=== PATIENT | male | born 1955 | race Two or more races ===

== ENCOUNTER 2019-03-24 16:53 | Inpatient (IN) | payer MEDICARE, MEDICAID ==
[~2019-03-24] VITALS: Ht 200.7 cm; Wt 130.6 kg
[2019-03-24] MEDS ORDERED: MIRALAX17 G2 ORAL (16:57)
[2019-03-24] MEDS ORDERED: LEXAPRO20 MG ORAL (16:57)
[2019-03-24] MEDS ORDERED: GABAPENTIN600 MG ORAL (16:57)
[2019-03-24] MEDS ORDERED: LAMICTAL25 M1 PO (16:57)
[2019-03-24] MEDS ORDERED: ASPIRIN81 MG ORAL (16:57)
[2019-03-24] MEDS ORDERED: AMBIEN10 M1 ORAL (16:57)
[2019-03-24] MEDS ORDERED: FUROSEMIDE40 MG ORAL (16:57)
[2019-03-24] MEDS ORDERED: FLOMAX0.4 MG ORAL (16:59)
[2019-03-24] MEDS ORDERED: BENAZEPRIL HCL40 MG ORAL (16:59)
[2019-03-24] MEDS ORDERED: OXYCONTIN40 MG ORAL (16:59)
[2019-03-24] MEDS ORDERED: CARISOPRODOL350 MG ORAL (16:59)
--- NOTE | 2019-03-24 17:10 | NUR ---
ED Nurse Note: Patient was brought in by [facility] complaining of progressive generalized weaknes. Patient stated that hes been experiencing chronic pain on his lower back. He verbalized his left leg does not have sensation at all. Applied pressure on his left leg but patient has no reaction to pain and sensation. He verbalized that on his right leg, he felt the sensation and a little bit of pain when appleying pressure.
--- NOTE | 2019-03-24 17:22 | Emergency Room Report ---
History of Present Illness General Chief Complaint: Generalized Weakness Source: Medical Record, EMS Present Illness HPI Patient is a 63-year-old male brought in by nursing facility after increased generalized weakness. Patient has long-standing history of chronic low back pain. He reports being increasingly weak to his left side. He states he had prior history of degenerative disc disease in his lumbar spine. He reports having a recent hospitalization which she had MRI performed. He does report having some prior history of neuropathy. He states that he smokes 5 cigarettes a day. Patient was sent in from [facility]. Allergies: Coded Allergies: No Known Allergies (Unverified , 03/24/19) Patient History Reviewed Nursing Documentation: PMH: Agreed; PSxH: Agreed Nursing Documentation-PMH Hx Hypertension: Yes History Of Psychiatric Problem: Yes - ANXIETY Physical Exam Vital Signs Date Time Temp Pulse Resp B/P (MAP) Pulse Ox O2 Delivery O2 Flow Rate FiO2 03/24/19 16:48 99.0 81 16 111/72 (85) 93 General Appearance: alert, GCS 15, obese, Chronically Ill Eyes: bilateral eye PERRL ENT: hearing grossly normal Neck: limited range of motion Respiratory: lungs clear, normal breath sounds, no rhonchi Cardiovascular #1: normal peripheral pulses, regular rate, rhythm Gastrointestinal: normal inspection, non tender, soft Musculoskeletal: normal inspection Neurologic: alert, oriented x3, motor weakness - bilateral leg weakness, other - toes downgoing with plantar reflex Psychiatric: normal inspection Medical Decision Making Diagnostic Impression: Primary Impression: Generalized weakness Additional Impressions: Lumbar disc disease Bilateral leg weakness ER Course Patient presented for generalized weakness. Differential diagnosis included was not limited to anemia, urinary tract infection, electrolyte abnormality, hypothyroidism, myocardial infarction, myasthenia gravis, dehydration, among others. Because of complexity of patient's case laboratory tests and imaging studies were ordered. Patient's laboratory study was unremarkable. Patient was noted to have weakness to both lower extremities as well as somewhat to his upper extremities. Appears to be mildly somnolent. Dr. Jorge Benedict was contacted for inpatient management Labs Test 03/24/19 17:55 03/24/19 18:00 03/24/19 19:30 Phosphorus Level 4.3 MG/DL (2.5-4.9) Magnesium Level 1.7 MG/DL (1.8-2.4) Total Bilirubin 0.4 MG/DL (0.2-1.0) Aspartate Amino Transf (AST/SGOT) 22 U/L (15-37) Alanine Aminotransferase (ALT/SGPT) 39 U/L (12-78) Alkaline Phosphatase 133 U/L (46-116) Total Creatine Kinase 28 U/L (26-308) Creatine Kinase MB 1.1 NG/ML (0.0-3.6) Creatine Kinase MB Relative Index 3.9 Troponin I 0.000 ng/mL (0.000-0.056) Total Protein 7.4 G/DL (6.4-8.2) Albumin 3.8 G/DL (3.4-5.0) Globulin 3.6 g/dL Albumin/Globulin Ratio 1.1 (1.0-2.7) Urine Color Pale yellow Urine Appearance Clear Urine pH 8 (4.5-8.0) Urine Specific [place] 1.010 (1.005-1.035) Urine Protein Negative (NEGATIVE) Urine Glucose (UA) Negative (NEGATIVE) Urine Ketones Negative (NEGATIVE) Urine Blood Negative (NEGATIVE) Urine Nitrite Negative (NEGATIVE) Urine Bilirubin Negative (NEGATIVE) Urine Urobilinogen Normal MG/DL (0.0-1.0) Urine Leukocyte Esterase Negative (NEGATIVE) Lactic Acid Level 1.20 mmol/L (0.66-2.22) White Blood Count Red Blood Count Hemoglobin Hematocrit Mean Corpuscular Volume Mean Corpuscular Hemoglobin Mean Corpuscular Hemoglobin Concent Red Cell Distribution Width Platelet Count Mean Platelet Volume Neutrophils (%) (Auto) Lymphocytes (%) (Auto) Monocytes (%) (Auto) Eosinophils (%) (Auto) Basophils (%) (Auto) Sodium Level Potassium Level Chloride Level Carbon Dioxide Level Anion Gap Blood Urea Nitrogen Creatinine Estimat Glomerular Filtration Rate Glucose Level Calcium Level Last Vital Signs Date Time Temp Pulse Resp B/P (MAP) Pulse Ox O2 Delivery O2 Flow Rate FiO2 03/24/19 16:48 99.0 81 16 111/72 (85) 93 Status: improved Disposition: ADMITTED INPATIENT Condition: Stable Quinn Nichols MD Mar 24, 2019 17:22
[2019-03-24 18:27] LABS: BASOPHILS % (AUTO) 1.1 % (0.0-2.0); EOSINOPHILS % (AUTO) 1.6 % (0.0-3.0); HEMATOCRIT 41.8 % (42.0-52.0); HEMOGLOBIN 14.3 G/DL (14.2-18.0); LYMPHOCYTES % (AUTO) 17.5 % (20.0-45.0); MEAN CORPUSCULAR VOLUME 97 FL (80-99); MONOCYTES % (AUTO) 6.2 % (1.0-10.0); NEUTROPHILS % (AUTO) 73.5 % (45.0-75.0); PLATELET COUNT 222 K/UL (150-450); RED BLOOD COUNT 4.33 M/UL (4.70-6.10); RED CELL DISTRIBUTION WIDTH 10.4 % (11.6-14.8); WHITE BLOOD COUNT 11.9 K/UL (4.8-10.8)
[2019-03-24 18:29] VITALS: BP 110/84
[2019-03-24 18:33] LABS: APPEARANCE,URINE CLEAR; BILIRUBIN, URINE NEGATIVE (NEGATIVE); COLOR,URINE PALE YELLOW; GLUCOSE, URINE (UA) NEGATIVE (NEGATIVE); KETONES,URINE NEGATIVE (NEGATIVE); LEUKOCYTE ESTERASE ,URINE NEGATIVE (NEGATIVE); NITRITE,URINE NEGATIVE (NEGATIVE); PH,URINE 8 (4.5-8.0); PROTEIN,URINE NEGATIVE (NEGATIVE); UROBILINOGEN,URINE NORMAL MG/DL (0.0-1.0)
[2019-03-24 18:41] LABS: ANION GAP 3 mmol/L (5-15); BLOOD UREA NITROGEN 12 mg/dL (7-18); CALCIUM 9.5 MG/DL (8.5-10.1); CARBON DIOXIDE 35 MMOL/L (21-32); CHLORIDE 103 MMOL/L (98-107); CREATININE 0.9 MG/DL (0.55-1.30); POTASSIUM 4.4 MMOL/L (3.5-5.1); SODIUM 141 MMOL/L (136-145)
[2019-03-24 19:06] LABS: ALANINE AMINOTRANSFERASE 39 U/L (12-78); ALBUMIN 3.8 G/DL (3.4-5.0); ALBUMIN/GLOBULIN RATIO 1.1 (1.0-2.7); ALKALINE PHOSPHATASE 133 U/L (46-116); ASPARTATE AMINO TRANSFERASE 22 U/L (15-37); BILIRUBIN,TOTAL 0.4 MG/DL (0.2-1.0); CKMB 1.1 NG/ML (0.0-3.6); CREATINE KINASE 28 U/L (26-308); PHOSPHORUS 4.3 MG/DL (2.5-4.9)
[2019-03-24 19:11] VITALS: BP 110/86
--- NOTE | 2019-03-24 19:12 | NUR ---
ED Nurse Note: Report given to Karlene, patient resting in bed with no respiratoy distress noted.
[2019-03-24 21:00] VITALS: BP 110/86
--- NOTE | 2019-03-24 21:00 | NUR ---
ED Nurse Note: Patient was admited to Tele due to generalized weakness, weakness in his lower extremityes. Patient was transfered to the unit via gurmney, by ACLS protocol, with all belongings. AAO x4, VSS at this time, skin is dry warm to touch.
[2019-03-24 21:30] VITALS: BP 116/66
--- NOTE | 2019-03-24 22:00 | NUR ---
NURSE NOTES: Pt brought up via gurney from ER. Got report from Alaina MENDOZA. Pt complaining of weakness in left leg but says he is fine and stable. Denies any pain. Denies n/v or SOB. Pt fully oriented and able to answer all of my questions. No skin issues noted. VSS T:97.9 HR:68 R:18 BP:116/66 O2:97% on room air. Pt on manager cardiac cath running NSR. Pt resting in bed comfortably. Bed in low and locked position, call light within reach, bedside table within reach. Continue to monitor. Called Dr. Benedict for orders. Orders given and placed.
[2019-03-24] MEDS ORDERED: Zolpidem 5mg tab ORAL PRN (23:45)
[2019-03-25] VITALS: BP 139/73
[2019-03-25] MEDS: oxyCONTIN 20mg tab ORAL SCH ×3 (01:33→13:02)
[2019-03-25] MEDS: Heparin 5000 units/ml inj SUBQ SCH ×3 (05:30→21:31)
--- NOTE | 2019-03-25 07:00 | NUR ---
HAND-OFF: Report given to Osiel MENDOZA. endorsed plan of care.
[2019-03-25 08:00] VITALS: BP 102/57
--- NOTE | 2019-03-25 08:17 | NUR ---
NURSE NOTES: Pt in bed in low position, call light at bedside, bed alarm on, pt Ox4 was calm and cooperative this morning but was indorsed that he is agitated and and does not like this hospital, however, he seems compliant this morning, pt denies pain, IV intact and patent, no s/s of distress or sob noted.
[2019-03-25] MEDS ORDERED: Furosemide 40mg tab ORAL SCH (09:00)
[2019-03-25] MEDS ORDERED: oxyCONTIN 20mg tab ORAL SCH ×2 (09:00→18:00)
[2019-03-25] MEDS ORDERED: Miralax 17gm pkt ORAL SCH (09:00)
[2019-03-25] MEDS ORDERED: Aspirin Baby 81mg ORAL SCH (09:00)
[2019-03-25 11:54] VITALS: BP 105/68
--- NOTE | 2019-03-25 12:28 | Consultation ---
History of Present Illness General Chief Complaint: Generalized Weakness Present Illness Allergies: Coded Allergies: No Known Allergies (Unverified , 03/24/19) Medication History Scheduled Aspirin* (Aspirin*), 81 MG ORAL DAILY, (Reported) Benazepril Hcl* (Benazepril Hcl*), 40 MG ORAL DAILY, (Reported) Carisoprodol* (Carisoprodol*), 350 MG ORAL TID, (Reported) Escitalopram Oxalate* (Lexapro*), 20 MG ORAL DAILY, (Reported) Furosemide* (Lasix*), 40 MG ORAL DAILY, (Reported) Gabapentin* (Gabapentin*), 600 MG ORAL THREE TIMES A DAY, (Reported) Oxycodone Hcl Er* (Oxycontin*), 40 MG ORAL TID, (Reported) Polyethylene Glycol 3350* (Miralax*), 17 GM ORAL DAILY, (Reported) Tamsulosin HCl (Flomax), 0.4 MG ORAL DAILY, (Reported) Scheduled PRN Zolpidem Tartrate* (Ambien*), 10 MG ORAL HS PRN for Insomnia, (Reported) Miscellaneous Medications Lamotrigine (Lamictal), 20 MG PO, (Reported) Patient History Healthcare decision maker Resuscitation status Advanced Directive on File Physical Exam Last 24 Hour Vital Signs Date Time Temp Pulse Resp B/P (MAP) Pulse Ox O2 Delivery O2 Flow Rate FiO2 03/25/19 11:54 98.8 66 20 105/68 (80) 95 03/25/19 10:09 93.7 03/25/19 10:09 93.7 03/25/19 09:38 102/57 03/25/19 08:49 Room Air 03/25/19 08:00 93.7 68 20 102/57 (72) 95 03/25/19 07:47 67 03/25/19 04:00 65 03/25/19 00:00 64 03/25/19 00:00 97.5 81 18 139/73 (95) 97 03/24/19 23:50 Room Air 03/24/19 21:42 Room Air 03/24/19 21:30 97.9 68 18 116/66 (83) 97 03/24/19 21:30 75 03/24/19 21:00 97.6 66 18 110/86 96 Room Air 03/24/19 21:00 97.6 66 18 110/86 96 Room Air 03/24/19 19:11 97.6 66 18 110/86 96 Room Air 03/24/19 18:29 97.8 84 18 110/84 96 Room Air 03/24/19 17:15 81 16 Room Air 03/24/19 16:48 99.0 81 16 111/72 (85) 93 Intake and Output 03/24/19 03/25/19 19:00 07:00 Intake Total 700 ml Balance 700 ml Intake Oral 700 ml # Voids 1 2 Laboratory Tests Test 03/24/19 17:55 03/24/19 18:00 03/24/19 19:30 White Blood Count 11.9 K/UL (4.8-10.8) H Red Blood Count 4.33 M/UL (4.70-6.10) L Hemoglobin 14.3 G/DL (14.2-18.0) Hematocrit 41.8 % (42.0-52.0) L Mean Corpuscular Volume 97 FL (80-99) Mean Corpuscular Hemoglobin 33.0 PG (27.0-31.0) H Mean Corpuscular Hemoglobin Concent 34.2 G/DL (32.0-36.0) Red Cell Distribution Width 10.4 % (11.6-14.8) L Platelet Count 222 K/UL (150-450) Mean Platelet Volume 6.7 FL (6.5-10.1) Neutrophils (%) (Auto) 73.5 % (45.0-75.0) Lymphocytes (%) (Auto) 17.5 % (20.0-45.0) L Monocytes (%) (Auto) 6.2 % (1.0-10.0) Eosinophils (%) (Auto) 1.6 % (0.0-3.0) Basophils (%) (Auto) 1.1 % (0.0-2.0) Sodium Level 141 MMOL/L (136-145) Potassium Level 4.4 MMOL/L (3.5-5.1) Chloride Level 103 MMOL/L (98-107) Carbon Dioxide Level 35 MMOL/L (21-32) H Anion Gap 3 mmol/L (5-15) L Blood Urea Nitrogen 12 mg/dL (7-18) Creatinine 0.9 MG/DL (0.55-1.30) Estimat Glomerular Filtration Rate > 60 mL/min (>60) Glucose Level 110 MG/DL (74-106) H Lactic Acid Level 2.90 mmol/L (0.4-2.0) H 1.20 mmol/L (0.66-2.22) Calcium Level 9.5 MG/DL (8.5-10.1) Phosphorus Level 4.3 MG/DL (2.5-4.9) Magnesium Level 1.7 MG/DL (1.8-2.4) L Total Bilirubin 0.4 MG/DL (0.2-1.0) Aspartate Amino Transf (AST/SGOT) 22 U/L (15-37) Alanine Aminotransferase (ALT/SGPT) 39 U/L (12-78) Alkaline Phosphatase 133 U/L (46-116) H Total Creatine Kinase 28 U/L (26-308) Creatine Kinase MB 1.1 NG/ML (0.0-3.6) Creatine Kinase MB Relative Index 3.9 Troponin I 0.000 ng/mL (0.000-0.056) Total Protein 7.4 G/DL (6.4-8.2) Albumin 3.8 G/DL (3.4-5.0) Globulin 3.6 g/dL Albumin/Globulin Ratio 1.1 (1.0-2.7) Urine Color Pale yellow Urine Appearance Clear Urine pH 8 (4.5-8.0) Urine Specific [place] 1.010 (1.005-1.035) Urine Protein Negative (NEGATIVE) Urine Glucose (UA) Negative (NEGATIVE) Urine Ketones Negative (NEGATIVE) Urine Blood Negative (NEGATIVE) Urine Nitrite Negative (NEGATIVE) Urine Bilirubin Negative (NEGATIVE) Urine Urobilinogen Normal MG/DL (0.0-1.0) Urine Leukocyte Esterase Negative (NEGATIVE) Microbiology Date/Time Source Procedure Growth Status 03/24/19 19:30 Rectum Received Height (Feet): 6 Height (Inches): 7.00 Weight (Pounds): 290 Medications Current Medications Medications (Trade) Dose Ordered Sig/Kaela Route PRN Reason Start Time Stop Time Status Last Admin Dose Admin Aspirin (ASA) 81 mg DAILY ORAL 03/25/19 09:00 04/24/19 08:59 03/25/19 09:37 Benazepril HCl (Lotensin) 40 mg DAILY ORAL 10/1/19 09:00 04/24/19 08:59 03/25/19 09:38 Carisoprodol (Soma) 350 mg THREE TIMES A DAY ORAL 03/25/19 02:00 04/24/19 08:59 03/25/19 09:39 Clonazepam (KlonoPIN) 1 mg Q8H ORAL 03/25/19 12:00 03/25/19 20:01 03/25/19 12:02 Clonazepam (KlonoPIN) 1 mg Q8H ORAL 03/26/19 09:00 04/02/19 08:59 Diphenhydramine HCl (Benadryl) 50 mg Q6H PRN ORAL Itching 03/25/19 05:15 04/24/19 05:14 Escitalopram Oxalate (Lexapro) 20 mg DAILY ORAL 03/25/19 09:00 04/24/19 08:59 03/25/19 09:38 Furosemide (Lasix) 40 mg DAILY ORAL 03/25/19 09:00 04/24/19 08:59 03/25/19 09:40 Gabapentin (Neurontin) 600 mg THREE TIMES A DAY ORAL 03/25/19 02:00 04/24/19 08:59 03/25/19 09:39 Heparin Sodium (Porcine) (Heparin 5000 units/ml) 5,000 units EVERY 8 HOURS SUBQ 03/25/19 06:00 04/24/19 05:59 Lamotrigine (LaMICtal) 25 mg DAILY ORAL 03/25/19 09:00 04/24/19 08:59 03/25/19 09:38 Ondansetron HCl (Zofran) 4 mg Q4H PRN IVP Nausea & Vomiting 03/24/19 23:45 04/23/19 23:44 Oxycodone HCl (OxyCONTIN) 40 mg TID ORAL 03/25/19 01:30 04/01/19 08:59 03/25/19 09:39 Polyethylene Glycol (Miralax) 17 gm DAILY ORAL 03/25/19 09:00 04/24/19 08:59 Tamsulosin HCl (Flomax) 0.4 mg BEDTIME ORAL 03/25/19 21:00 04/24/19 00:00 Zolpidem Tartrate (Ambien) 5 mg HSPRN PRN ORAL Insomnia 9/30/19 23:45 03/31/19 23:44 03/25/19 02:04 Assessment/Plan Problem List: (1) Lumbar disc disease ICD Codes: M51.9 - Unspecified thoracic, thoracolumbar and lumbosacral intervertebral disc disorder SNOMED: 572209205 (2) Scoliosis ICD Codes: M41.9 - Scoliosis, unspecified SNOMED: 350168381 Roxana Lay MD Mar 25, 2019 12:28
--- NOTE | 2019-03-25 14:17 | Diagnostic Imaging Report ---
Indication: Shortness of breath Technique: One view of the chest Comparison: none Findings: Lungs and pleural spaces are clear. Heart size is normal. Impression: No acute process
[2019-03-25 16:00] VITALS: BP 110/60
[2019-03-25] MEDS ORDERED: Zolpidem 5mg tab ORAL PRN (17:13)
--- NOTE | 2019-03-25 17:50 | NUR ---
NURSE NOTES: HANDOFF RECEIVED FROM REJI RASMUSSEN. PATIENT STABLE WITH NO APPARENT SIGNS OF DISTRESS. PATIENT ALERT AND ORIENTED AND ABLE TO MAKE NEEDS KNOWN. IV SITE IS CLEAN DRY AND INTACT, SALINE LOCKED. BED IN THE LOW AND LOCKED POSITION AND CALL LIGHT WITHIN REACH, WILL CONTINUE TO MONITOR.
--- NOTE | 2019-03-25 17:52 | NUR ---
HAND-OFF: Report given to Edward in 4E, pt in room 418.1
--- NOTE | 2019-03-25 19:17 | NUR ---
HAND-OFF: Report given to REJI RIGGINS.
--- NOTE | 2019-03-25 19:30 | NUR ---
NURSE NOTES: Patient in bed, alert and oriented x4, talkative, with complaint of 9 out of 10 pain. Per pt, he just got medicated. Waiting for it kick in. Instructed to use of call light for assistance. Call light in reach. Bed in lowest and lock engaged. Will continue to monitor.
[2019-03-25 20:00] VITALS: BP 108/59
[2019-03-25] MEDS ORDERED: Tamsulosin 0.4mg cap ORAL SCH ×2 (21:00)
[2019-03-25] MEDS: Tamsulosin 0.4mg cap ORAL SCH (21:30)
--- NOTE | 2019-03-25 21:45 | History and Physical Report ---
DATE OF ADMISSION: 03/24/2019 CHIEF COMPLAINT: The patient is a 63-year-old male, presents with chief complaint of generalized weakness and back pain. HISTORY OF PRESENT ILLNESS: The patient has a long history of chronic low back pain. The patient has been diagnosed with lumbar stenosis in the past. The patient is a resident of [facility]. The patient was transferred to [facility] emergency room for evaluation for generalized weakness. The patient had been weaker than usual over the last couple of days, worse on the left than the right. The patient presented to [place] emergency room. The patient is admitted with generalized weakness and intractable back pain. PAST MEDICAL HISTORY: Significant for: 1. Hypertension. 2. Lumbar stenosis. 3. Benign prostatic hypertrophy. 4. Anxiety disorder. 5. Obesity. 6. Bipolar disorder. 7. Radiculopathy to the left leg. PAST SURGICAL HISTORY: The patient denies. CURRENT MEDICATIONS: 1. Aspirin 81 mg p.o. daily. 2. Benazepril 40 mg p.o. daily. 3. Soma 350 mg p.o. three times daily. 4. Lexapro 20 mg p.o. daily. 5. Lasix 40 mg p.o. daily. 6. Gabapentin 600 mg p.o. three times daily. 7. Lamictal 20 mg p.o. daily. 8. OxyContin 40 mg p.o. three times daily. 9. MiraLAX 17 g p.o. daily. 10. Flomax 0.4 mg p.o. daily. 11. Ambien 10 mg p.o. nightly. ALLERGIES: No known drug allergies. SOCIAL HISTORY: The patient is and is a resident of [facility]. The patient admits to tobacco use of one-quarter pack per day. The patient denies alcohol use. REVIEW OF SYSTEMS: CONSTITUTIONAL: The patient denies weight loss or weight gain. The patient denies fevers or chills. HEENT: The patient denies ear or throat pain. The patient denies headache. CARDIOVASCULAR: The patient denies palpitations or chest pain. CHEST: The patient denies wheeze or shortness of breath. ABDOMEN: The patient denies nausea, vomiting, diarrhea, or constipation. GENITOURINARY: The patient denies dysuria or increased frequency of urination. NEUROMUSCULAR: The patient complains of generalized weakness as above. The patient complains of chronic low back pain as above. The patient denies seizures. PHYSICAL EXAMINATION: VITAL SIGNS: Temperature 97.5, respirations 18, pulse 81, blood pressure 139/73. GENERAL: The patient is well-developed and well-nourished male, in no apparent distress. HEENT: Eyes, pupils equal and responsive to light and accommodation. Extraocular movements are intact. NECK: Supple without lymphadenopathy. CHEST: Lungs are clear to auscultation bilaterally without wheezes or rales. CARDIOVASCULAR: Regular rate. S1, S2 normal without murmurs, rubs, or gallops. ABDOMEN: Soft, nontender, nondistended. Positive bowel sounds. No evidence of hepatosplenomegaly. Currently, no rebound or guarding noted. EXTREMITIES: Negative for clubbing, cyanosis, or edema. RECTAL/GENITAL: Not performed. NEUROLOGIC: Left leg is 3/5 motor strength compared to 5/5 on the right. Deep tendon reflexes are 2+ plantar. LABORATORY STUDIES: WBC 11.9, hemoglobin 14.3, hematocrit 41.8, platelets 202,000. Sodium 140, potassium 4.4, chloride 103, CO2 35, BUN 12, creatinine 0.9, glucose 110. A chest x-ray was reported as no acute disease. ASSESSMENT: This is a 63-year-old male. 1. Generalized weakness. 2. Chronic low back pain. 3. Left radiculopathy. 4. Lumbar stenosis. 5. Hypertension. 6. Benign prostatic hypertrophy. 7. Anxiety disorder. 8. Obesity. 9. Bipolar depression. TREATMENT: 1. Generalized weakness/low back pain/left radiculopathy/lumbar stenosis. Continue OxyContin as above. A Neurology consultation has been obtained with Dr. Allan Mendes. An MRI of the lumbar spine is pending. 2. Hypertension. Continue benazepril as above. 3. Benign prostatic hypertrophy. Continue tamsulosin as above. 4. Anxiety disorder/bipolar depression. Continue Lamictal and Lexapro as above. 5. Obesity. Jeanmarie Smiley M.D. DR: ELHAM/LIZZIE JOB#: [id number] CC:
--- NOTE | 2019-03-25 22:25 | NUR ---
NURSE NOTES: Per patient, he used to take Neurontin, Oxycontin, Soma, Clonazepam, Ambien and Benadryl at the same time at 12midnight for years. He wanted to take the first 4 at 8am, 4pm and 12midnight. RN was double checking the time of meds he wants to take tonight. Patient got agitated, sarcastic and accusing RN that she messed up the time of his meds. RN explained to the patient that TID has different time of giving meds than every 8hours but pt gives attitude to the nurse. RN called pharmacy for patient's wants. Charge nurse made aware.
[2019-03-26] VITALS: BP 106/61
[2019-03-26] MEDS: oxyCONTIN 20mg tab ORAL SCH ×4 (00:03→23:56)
--- NOTE | 2019-03-26 01:15 | NUR ---
NURSE NOTES: Patient requested not to be disturbed at 4am.
--- NOTE | 2019-03-26 03:57 | NUR ---
NURSE NOTES: Patient wanted his Ambien 10mg but took the 5mg. He said he will wait for the other dose. Dr. Lay made aware. Waiting for call back. Charge nurse made aware.
[2019-03-26] MEDS: Heparin 5000 units/ml inj SUBQ SCH ×3 (06:00→21:03)
[2019-03-26 06:29] LABS: EOSINOPHILS % (AUTO) 3.4 % (0.0-3.0); HEMATOCRIT 35.9 % (42.0-52.0); HEMOGLOBIN 12.4 G/DL (14.2-18.0); MEAN CORPUSCULAR VOLUME 96 FL (80-99); NEUTROPHILS % (AUTO) 52.5 % (45.0-75.0); PLATELET COUNT 191 K/UL (150-450); RED BLOOD COUNT 3.75 M/UL (4.70-6.10); RED CELL DISTRIBUTION WIDTH 11.1 % (11.6-14.8); WHITE BLOOD COUNT 9.1 K/UL (4.8-10.8)
[2019-03-26 06:37] LABS: ANION GAP 5 mmol/L (5-15); BLOOD UREA NITROGEN 16 mg/dL (7-18); CALCIUM 8.8 MG/DL (8.5-10.1); CARBON DIOXIDE 31 MMOL/L (21-32); CHLORIDE 104 MMOL/L (98-107); CREATININE 0.8 MG/DL (0.55-1.30); POTASSIUM 4.1 MMOL/L (3.5-5.1); SODIUM 140 MMOL/L (136-145)
[2019-03-26] MEDS ORDERED: Zolpidem 5mg tab ORAL PRN (06:45)
--- NOTE | 2019-03-26 06:45 | NUR ---
NURSE NOTES: Dr. Lay said ok with Ambien 10mg.
--- NOTE | 2019-03-26 07:17 | NUR ---
HAND-OFF: Report given to REJI Leon.
--- NOTE | 2019-03-26 07:42 | NUR ---
NURSE NOTES: HANDOFF RECEIVED FROM REJI BYRNE. PATIENT ALERT AND ORIENTED AND ABLE TO MAKE NEEDS KNOWN. PATIENT OBSERVED SITTING UP IN BED, NO APPARENT SIGNS OF DISTRESS. IV SITE IS CLEAN, DRY AND INTACT, SALINE LOCKED. PATIENT HAS WALKER AT BEDSIDE, BED IN THE LOW AND LOCKED POSITION, CALL LIGHT WITHIN REACH. WILL CONTINUE TO MONITOR.
[2019-03-26 08:00] VITALS: BP 111/58
[2019-03-26] MEDS: Furosemide 40mg tab ORAL SCH (08:46)
[2019-03-26] MEDS: Aspirin Baby 81mg ORAL SCH (08:47)
--- NOTE | 2019-03-26 08:50 | NUR ---
PT NOTE Received MD order for PT evaluation, medical record reviewed. Attempted to see patient for PT evaluation. Patient declining to participate with PT evaluation, states he wants to sleep. Will re-attempt later as schedule permits, Edward MENDOZA notified.
[2019-03-26] MEDS ORDERED: Miralax 17gm pkt ORAL SCH (09:00)
--- NOTE | 2019-03-26 09:00 | NUR ---
NURSE NOTES: ATTEMPTED TO ASSESS PATIENTS LOWER EXTREMITY MOVEMENT AND FLEXION DUE TO PATIENTS DIAGNOSIS OF LOWER EXTREMITY WEAKNESS. PATIENT STATED " THE DOCTOR DID A THOROUGH EXAMINATION, THIS SHOULD BE IN THE NOTES" EXPLAINED TO PATIENT THAT WE HAVE TO DO A DAILY ASSESSMENT, BUT PATIENT DID NOT COOPERATE, SO WAS THEREFORE UNABLE TO ASSESS LOWER EXTREMITY STRENGTH.
[2019-03-26 12:00] VITALS: BP 115/71
--- NOTE | 2019-03-26 13:28 | Pulmonology Progress Note ---
Assessment/Plan Problems: (1) Lumbar disc disease (2) Scoliosis (3) Malingering Assessment/Plan symptomatic treatment Neuro evaluation dvt prophylaxis Subjective ROS Limited/Unobtainable: No Constitutional: Reports: no symptoms HEENT: Repors: no symptoms Allergies: Coded Allergies: No Known Allergies (Unverified , 03/24/19) Objective Last 24 Hour Vital Signs Date Time Temp Pulse Resp B/P (MAP) Pulse Ox O2 Delivery O2 Flow Rate FiO2 03/26/19 09:00 Room Air 03/26/19 08:49 111/58 03/26/19 08:00 97.9 77 16 111/58 (75) 97 03/26/19 00:00 98.0 76 18 106/61 (76) 95 03/25/19 21:00 Room Air 03/25/19 20:00 98.2 70 20 108/59 (75) 95 03/25/19 16:00 98.6 62 18 110/60 (77) 97 03/25/19 15:32 69 03/25/19 13:31 98.8 03/25/19 13:31 98.8 Intake and Output 03/25/19 03/26/19 19:00 07:00 Intake Total 490 ml Output Total 600 ml Balance 490 ml -600 ml Intake Oral 490 ml Output Urine Total 600 ml # Voids 1 General Appearance: WD/WN HEENT: atraumatic, anicteric Respiratory/Chest: lungs clear Cardiovascular: normal peripheral pulses, regular rhythm, no JVD Abdomen: no organomegaly, no scars Microbiology Date/Time Source Procedure Growth Status 03/24/19 18:15 Blood Blood Culture - Preliminary NO GROWTH AFTER 24 HOURS Resulted 03/24/19 17:55 Blood Blood Culture - Preliminary NO GROWTH AFTER 24 HOURS Resulted 03/24/19 19:30 Rectum Received Laboratory Tests 03/26/19 05:15: White Blood Count 9.1, Red Blood Count 3.75L, Hemoglobin 12.4L, Hematocrit 35.9L , Mean Corpuscular Volume 96, Mean Corpuscular Hemoglobin 32.9H, Mean Corpuscular Hemoglobin Concent 34.4, Red Cell Distribution Width 11.1L, Platelet Count 191, Mean Platelet Volume 6.1L, Neutrophils (%) (Auto) 52.5, Lymphocytes (%) (Auto) 35.0, Monocytes (%) (Auto) 8.0, Eosinophils (%) (Auto) 3.4H, Basophils (%) (Auto) 1.0, Sodium Level 140, Potassium Level 4.1, Chloride Level 104, Carbon Dioxide Level 31, Anion Gap 5, Blood Urea Nitrogen 16, Creatinine 0.8, Estimat Glomerular Filtration Rate > 60, Glucose Level 104, Calcium Level 8.8 Current Medications Medications (Trade) Dose Ordered Sig/Kaela Route PRN Reason Start Time Stop Time Status Last Admin Dose Admin Aspirin (ASA) 81 mg DAILY ORAL 03/26/19 09:00 04/24/19 08:59 03/26/19 08:47 Benazepril HCl (Lotensin) 40 mg DAILY ORAL 03/26/19 09:00 04/24/19 08:59 Carisoprodol (Soma) 350 mg TID@0000,0800,1600 ORAL 03/26/19 00:00 04/25/19 00:00 03/26/19 08:41 Clonazepam (KlonoPIN) 1 mg TID@0000,0800,1600 ORAL 03/26/19 08:00 04/02/19 07:59 03/26/19 08:41 Diphenhydramine HCl (Benadryl) 50 mg Q6H PRN ORAL Itching 03/25/19 17:12 04/24/19 17:11 03/26/19 02:55 Escitalopram Oxalate (Lexapro) 20 mg DAILY ORAL 03/26/19 09:00 04/24/19 08:59 03/26/19 08:43 Furosemide (Lasix) 40 mg DAILY ORAL 03/26/19 09:00 04/24/19 08:59 03/26/19 08:46 Gabapentin (Neurontin) 600 mg TID@0000,0800,1600 ORAL 03/26/19 00:00 04/25/19 00:00 03/26/19 08:45 Heparin Sodium (Porcine) (Heparin 5000 units/ml) 5,000 units EVERY 8 HOURS SUBQ 03/25/19 22:00 04/24/19 05:59 Lamotrigine (LaMICtal) 25 mg DAILY ORAL 03/26/19 09:00 04/24/19 08:59 Ondansetron HCl (Zofran) 4 mg Q4H PRN IVP Nausea & Vomiting 03/25/19 19:45 04/23/19 23:44 Oxycodone HCl (OxyCONTIN) 40 mg TID@0000,0800,1600 ORAL 03/26/19 00:00 04/02/19 00:00 03/26/19 08:42 Polyethylene Glycol (Miralax) 17 gm DAILY ORAL 03/26/19 09:00 04/24/19 08:59 Tamsulosin HCl (Flomax) 0.4 mg BEDTIME ORAL 03/25/19 21:00 04/24/19 00:00 03/25/19 21:30 Zolpidem Tartrate (Ambien) 5 mg HSPRN PRN ORAL Insomnia 03/26/19 11:45 04/02/19 06:44 Roxana Lay MD Mar 26, 2019 13:28
[2019-03-26 16:00] VITALS: BP 114/56
--- NOTE | 2019-03-26 19:08 | Internal Med Progress Note ---
Subjective Date of Service: Mar 26, 2019 Physician Name Jeanmarie Smiley Attending Physician Jorge Benedict MD Current Medications Medications (Trade) Dose Ordered Sig/Kaela Route PRN Reason Start Time Stop Time Status Last Admin Dose Admin Aspirin (ASA) 81 mg DAILY ORAL 03/26/19 09:00 04/24/19 08:59 03/26/19 08:47 Benazepril HCl (Lotensin) 40 mg DAILY ORAL 03/26/19 09:00 04/24/19 08:59 Carisoprodol (Soma) 350 mg TID@0000,0800,1600 ORAL 03/26/19 00:00 04/25/19 00:00 03/26/19 16:58 Clonazepam (KlonoPIN) 1 mg TID@0000,0800,1600 ORAL 03/26/19 08:00 04/02/19 07:59 03/26/19 16:58 Diphenhydramine HCl (Benadryl) 50 mg Q6H PRN ORAL Itching 03/25/19 17:12 04/24/19 17:11 03/26/19 02:55 Escitalopram Oxalate (Lexapro) 20 mg DAILY ORAL 03/26/19 09:00 04/24/19 08:59 03/26/19 08:43 Furosemide (Lasix) 40 mg DAILY ORAL 03/26/19 09:00 04/24/19 08:59 03/26/19 08:46 Gabapentin (Neurontin) 600 mg TID@0000,0800,1600 ORAL 03/26/19 00:00 04/25/19 00:00 03/26/19 16:58 Heparin Sodium (Porcine) (Heparin 5000 units/ml) 5,000 units EVERY 8 HOURS SUBQ 03/25/19 22:00 04/24/19 05:59 03/26/19 14:25 Lamotrigine (LaMICtal) 25 mg DAILY ORAL 03/26/19 09:00 04/24/19 08:59 Ondansetron HCl (Zofran) 4 mg Q4H PRN IVP Nausea & Vomiting 03/25/19 19:45 04/23/19 23:44 Oxycodone HCl (OxyCONTIN) 40 mg TID@0000,0800,1600 ORAL 03/26/19 00:00 04/02/19 00:00 03/26/19 16:57 Polyethylene Glycol (Miralax) 17 gm DAILY ORAL 03/26/19 09:00 04/24/19 08:59 Tamsulosin HCl (Flomax) 0.4 mg BEDTIME ORAL 03/25/19 21:00 04/24/19 00:00 03/25/19 21:30 Zolpidem Tartrate (Ambien) 5 mg HSPRN PRN ORAL Insomnia 03/26/19 11:45 04/02/19 06:44 Allergies: Coded Allergies: No Known Allergies (Unverified , 03/24/19) ROS Limited/Unobtainable: No Constitutional: Reports: no symptoms HEENT: Reports: no symptoms Cardiovascular: Reports: no symptoms Respiratory: Reports: no symptoms Gastrointestinal/Abdominal: Reports: no symptoms Genitourinary: Reports: no symptoms Neurologic/Psychiatric: Reports: no symptoms Subjective 63 YO M admitted with generalized weakness and lumbar radiculopathy. Cover for Int [facility]-DR Benedict Objective Last Vital Signs Date Time Temp Pulse Resp B/P (MAP) Pulse Ox O2 Delivery O2 Flow Rate FiO2 03/26/19 16:00 98.3 60 18 114/56 (75) 95 03/26/19 09:00 Room Air Laboratory Tests Test 03/26/19 05:15 White Blood Count 9.1 K/UL (4.8-10.8) Red Blood Count 3.75 M/UL (4.70-6.10) L Hemoglobin 12.4 G/DL (14.2-18.0) L Hematocrit 35.9 % (42.0-52.0) L Mean Corpuscular Volume 96 FL (80-99) Mean Corpuscular Hemoglobin 32.9 PG (27.0-31.0) H Mean Corpuscular Hemoglobin Concent 34.4 G/DL (32.0-36.0) Red Cell Distribution Width 11.1 % (11.6-14.8) L Platelet Count 191 K/UL (150-450) Mean Platelet Volume 6.1 FL (6.5-10.1) L Neutrophils (%) (Auto) 52.5 % (45.0-75.0) Lymphocytes (%) (Auto) 35.0 % (20.0-45.0) Monocytes (%) (Auto) 8.0 % (1.0-10.0) Eosinophils (%) (Auto) 3.4 % (0.0-3.0) H Basophils (%) (Auto) 1.0 % (0.0-2.0) Sodium Level 140 MMOL/L (136-145) Potassium Level 4.1 MMOL/L (3.5-5.1) Chloride Level 104 MMOL/L (98-107) Carbon Dioxide Level 31 MMOL/L (21-32) Anion Gap 5 mmol/L (5-15) Blood Urea Nitrogen 16 mg/dL (7-18) Creatinine 0.8 MG/DL (0.55-1.30) Estimat Glomerular Filtration Rate > 60 mL/min (>60) Glucose Level 104 MG/DL (74-106) Calcium Level 8.8 MG/DL (8.5-10.1) Microbiology Date/Time Source Procedure Growth Status 03/24/19 18:15 Blood Blood Culture - Preliminary NO GROWTH AFTER 24 HOURS Resulted 03/24/19 17:55 Blood Blood Culture - Preliminary NO GROWTH AFTER 24 HOURS Resulted 03/24/19 19:30 Rectum Received Intake and Output 03/25/19 03/26/19 19:00 07:00 Intake Total 490 ml Output Total 600 ml Balance 490 ml -600 ml Intake Oral 490 ml Output Urine Total 600 ml # Voids 1 Objective PHYSICAL EXAMINATION: GENERAL: The patient is well-developed and well-nourished male, in no apparent distress. HEENT: Eyes, pupils equal and responsive to light and accommodation. Extraocular movements are intact. NECK: Supple without lymphadenopathy. CHEST: Lungs are clear to auscultation bilaterally without wheezes or rales. CARDIOVASCULAR: Regular rate. S1, S2 normal without murmurs, rubs, or gallops. ABDOMEN: Soft, nontender, nondistended. Positive bowel sounds. No evidence of hepatosplenomegaly. Currently, no rebound or guarding noted. EXTREMITIES: Negative for clubbing, cyanosis, or edema. RECTAL/GENITAL: Not performed. NEUROLOGIC: Left leg is 3/5 motor strength compared to 5/5 on the right. Deep tendon reflexes are 2+ plantar. Assessment/Plan Assessment/Plan ASSESSMENT: This is a 63-year-old male. 1. Generalized weakness. 2. Chronic low back pain. 3. Left radiculopathy. 4. Lumbar stenosis. 5. Hypertension. 6. Benign prostatic hypertrophy. 7. Anxiety disorder. 8. Obesity. 9. Bipolar depression. TREATMENT: 1. Generalized weakness/low back pain/left radiculopathy/lumbar stenosis. Continue OxyContin as above. A Neurology consultation has been obtained with Dr. Allan Mendes. An MRI of the lumbar spine is pending. 2. Hypertension. Continue benazepril as above. 3. Benign prostatic hypertrophy. Continue tamsulosin as above. 4. Anxiety disorder/bipolar depression. Continue Lamictal and Lexapro as above. 5. Obesity. Jeanmarie Smiley MD Mar 26, 2019 19:08
[2019-03-26] MEDS ORDERED: Gadavist 7.5mMol/7.5ml vial IV PRN (19:15)
--- NOTE | 2019-03-26 19:46 | NUR ---
HAND-OFF: Report given to REJI DARNELL.
[2019-03-26] MEDS: Tamsulosin 0.4mg cap ORAL SCH (21:03)
[2019-03-27] VITALS: BP 141/70
[2019-03-27] MEDS: Zolpidem 5mg tab ORAL PRN ×2 (02:03→03:30)
[2019-03-27] MEDS: Heparin 5000 units/ml inj SUBQ SCH ×3 (05:42→21:30)
[2019-03-27 06:07] LABS: BASOPHILS % (AUTO) 1.2 % (0.0-2.0); EOSINOPHILS % (AUTO) 3.7 % (0.0-3.0); HEMATOCRIT 37.8 % (42.0-52.0); HEMOGLOBIN 13.1 G/DL (14.2-18.0); LYMPHOCYTES % (AUTO) 40.1 % (20.0-45.0); MEAN CORPUSCULAR VOLUME 94 FL (80-99); MONOCYTES % (AUTO) 8.2 % (1.0-10.0); NEUTROPHILS % (AUTO) 46.8 % (45.0-75.0); PLATELET COUNT 208 K/UL (150-450); RED BLOOD COUNT 4.02 M/UL (4.70-6.10); WHITE BLOOD COUNT 8.9 K/UL (4.8-10.8)
[2019-03-27 06:18] LABS: ANION GAP 6 mmol/L (5-15); BLOOD UREA NITROGEN 15 mg/dL (7-18); CALCIUM 8.7 MG/DL (8.5-10.1); CARBON DIOXIDE 30 MMOL/L (21-32); CHLORIDE 104 MMOL/L (98-107); CREATININE 0.7 MG/DL (0.55-1.30); POTASSIUM 3.9 MMOL/L (3.5-5.1); SODIUM 140 MMOL/L (136-145)
--- NOTE | 2019-03-27 07:22 | NUR ---
HAND-OFF: Report given to REJI Montesinos.
--- NOTE | 2019-03-27 07:23 | NUR ---
NURSE NOTES: Received patient sleeping comfortably in bed. IV site at left antecubital, 20 gauge, saline lock. Bed at lowest level with 2 side rails up. Call light within reach. In no apparent distress at this time. Will continue to monitor.
[2019-03-27 08:00] VITALS: BP 130/71
[2019-03-27] MEDS: Furosemide 40mg tab ORAL SCH (08:09)
[2019-03-27] MEDS: Aspirin Baby 81mg ORAL SCH (08:10)
[2019-03-27] MEDS: oxyCONTIN 20mg tab ORAL SCH ×3 (08:10→23:57)
--- NOTE | 2019-03-27 09:10 | NUR ---
PT EVALUATION NOTE Patient seen for initial evaluation, see complete evaluation for details. Patient presents with low back pain which affects his ability to perform mobility tasks. Patient required SBA to transfer from bed <-> wheelchair, verbal cues required for safety. Patient states he has been non-ambulatory for many years. Patient will benefit from skilled inpatient PT intervention to address strength, safety and transfer training for improved functional mobility and safety. Recommend discharge to SNF once medically cleared by MD and wheelchair for mobility as patient states his current wheelchair has a broken frame. Addendum: 03/27/19 at 1250 by SOFIA TUCKER PT Amended: Links added.
--- NOTE | 2019-03-27 10:54 | NUR ---
MRI LUMBAR W/WO COMPLETED.
--- NOTE | 2019-03-27 11:09 | NUR ---
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 98.2 HR 72 RR 18 B/P 141/70 RA 98% IS: LASIX PO LEXAPRO PO NEURONTIN PO HEPARIN SUBC MRI L SPINE NEURO CONSULT MED/SURG STATUS
[2019-03-27 12:00] VITALS: BP 121/77
--- NOTE | 2019-03-27 13:14 | Diagnostic Imaging Report ---
Indication: Back pain Technique: MRI examination of the Lumbar spine was performed in a 1.5 Maude magnet. Sequences obtained include sagittal and axial T1 and T2 fast spin echo, and sagittal STIR. Pre/Post gadolinium axial and sagittal T1 FSE w/ fat saturation obtained. Comparison: none Findings: There is a left convex scoliosis of the lumbar spine present. L1-2: The disc appears relatively normal at this level. There is no evidence of stenosis of the central canal or neural foramen. L2-3: There is narrowing of the intervertebral disc. There is a mild wide-based concentric disc bulge demonstrated, asymmetrically larger on the right extending laterally. There is narrowing of the right lateral recess and mild narrowing of the right neural foramen. Left convex scoliosis is associated with this. Hypertrophied facets noted bilaterally. L3-4: There is moderate narrowing of intervertebral disc and moderate hypertrophy of the facets. Mild endplate spurs are noted at this level. Concentric disc bulge demonstrated. Laminectomy also present at this level. There is no evidence of central canal stenosis. There is a moderate right neural foraminal stenosis present. L4-5: Moderate narrowing of the intervertebral disc demonstrated with endplate osteophyte formation and a concentric white based disc bulge. There is no central canal stenosis with maintenance of the AP diameter of the central canal which is normal. There is narrowing of the right lateral recess and moderate bilateral neural foraminal stenosis. The foraminal stenosis appears slightly worse on the left. Laminectomy also noted at this level. L5-S1 demonstrates normal appearance of the disc. There is no central stenosis. There is no neural foraminal stenosis. Hypertrophy of the facets noted. Bone marrow signal is essentially normal. There is some heterogeneity of signal associated with the vertebral endplates at L3-4 L4-5 composed mainly of T1 hyperintense fat. The visualized part of the distal spinal cord is normal. The cord terminates with visualization of the conus medullaris at L1. There are no abnormal fluid collections or paraspinous or paravertebral soft tissue swelling or collections identified. IMPRESSION: Left convex lumbar scoliosis. Multilevel degenerative disease involving the intervertebral discs and facets. L1-2: Normal. L2-3: Narrowing of the right lateral recess and mild right foraminal stenosis. Facet arthropathy. L3-4: Status post laminectomy Moderate degenerative disc disease. Moderate right lateral recess/neural foraminal stenosis. L4-5: Status post laminectomy. Moderate degenerative disc disease. Narrowing of the right lateral recess and moderate bilateral foraminal stenosis slightly worse on the left compared to the right. Facet arthropathy. L5-S1: Facet arthropathy.
--- NOTE | 2019-03-27 14:27 | Pulmonology Progress Note ---
Assessment/Plan Problems: (1) Lumbar disc disease (2) Scoliosis (3) Malingering Assessment/Plan symptomatic treatment Neuro evaluation dvt prophylaxis mri reviewed: IMPRESSION: Left convex lumbar scoliosis. Multilevel degenerative disease involving the intervertebral discs and facets. L1-2: Normal. L2-3: Narrowing of the right lateral recess and mild right foraminal stenosis. Facet arthropathy. L3-4: Status post laminectomy Moderate degenerative disc disease. Moderate right lateral recess/neural foraminal stenosis. L4-5: Status post laminectomy. Moderate degenerative disc disease. Narrowing of the right lateral recess and moderate bilateral foraminal stenosis slightly worse on the left compared to the right. Facet arthropathy. L5-S1: Facet arthropathy. Subjective ROS Limited/Unobtainable: No Constitutional: Reports: no symptoms HEENT: Repors: no symptoms Allergies: Coded Allergies: No Known Allergies (Unverified , 03/24/19) Objective Last 24 Hour Vital Signs Date Time Temp Pulse Resp B/P (MAP) Pulse Ox O2 Delivery O2 Flow Rate FiO2 03/27/19 12:00 98.3 79 19 121/77 (92) 96 03/27/19 09:00 Room Air 03/27/19 08:39 98.5 03/27/19 08:39 98.5 03/27/19 08:10 141/70 03/27/19 08:00 98.2 72 18 130/71 (90) 96 03/27/19 00:00 98.5 80 19 141/70 (93) 97 03/26/19 20:32 Room Air 03/26/19 16:00 98.3 60 18 114/56 (75) 95 Intake and Output 03/26/19 03/27/19 18:59 06:59 Intake Total 140 ml Output Total 1050 ml Balance 140 ml -1050 ml Intake Oral 140 ml Output Urine Total 1050 ml # Voids 2 General Appearance: WD/WN HEENT: normocephalic, anicteric Respiratory/Chest: chest wall non-tender, normal breath sounds Abdomen: soft, non tender, non distended Genitourinary: normal external genitalia Extremities: no clubbing Skin: no rash Microbiology Date/Time Source Procedure Growth Status 03/24/19 18:15 Blood Blood Culture - Preliminary NO GROWTH AFTER 48 HOURS Resulted 03/24/19 17:55 Blood Blood Culture - Preliminary NO GROWTH AFTER 48 HOURS Resulted 03/24/19 19:30 Nasal Nares MRSA Culture - Final NO METHICILLIN RESISTANT STAPH AUREUS... Complete 03/24/19 19:30 Rectum - Final NO CARBAPENEM-RESISTANT ENTEROBACTERI... Complete 03/24/19 19:30 Rectum VRE Culture - Final NO VANCOMYCIN RESISTANT ENTEROCOCCUS ... Complete Laboratory Tests 03/27/19 05:42: White Blood Count 8.9, Red Blood Count 4.02L, Hemoglobin 13.1L, Hematocrit 37.8L , Mean Corpuscular Volume 94, Mean Corpuscular Hemoglobin 32.7H, Mean Corpuscular Hemoglobin Concent 34.8, Red Cell Distribution Width 11.0L, Platelet Count 208, Mean Platelet Volume 6.1L, Neutrophils (%) (Auto) 46.8, Lymphocytes (%) (Auto) 40.1, Monocytes (%) (Auto) 8.2, Eosinophils (%) (Auto) 3.7H, Basophils (%) (Auto) 1.2, Sodium Level 140, Potassium Level 3.9, Chloride Level 104, Carbon Dioxide Level 30, Anion Gap 6, Blood Urea Nitrogen 15, Creatinine 0.7, Estimat Glomerular Filtration Rate > 60, Glucose Level 105, Calcium Level 8.7 Current Medications Medications (Trade) Dose Ordered Sig/Kaela Route PRN Reason Start Time Stop Time Status Last Admin Dose Admin Aspirin (ASA) 81 mg DAILY ORAL 03/26/19 09:00 04/24/19 08:59 03/27/19 08:10 Benazepril HCl (Lotensin) 40 mg DAILY ORAL 03/26/19 09:00 04/24/19 08:59 03/27/19 08:10 Carisoprodol (Soma) 350 mg TID@0000,0800,1600 ORAL 03/26/19 00:00 04/25/19 00:00 03/27/19 08:09 Clonazepam (KlonoPIN) 1 mg TID@0000,0800,1600 ORAL 03/26/19 08:00 04/02/19 07:59 03/27/19 08:09 Diphenhydramine HCl (Benadryl) 50 mg Q6H PRN ORAL Itching 03/25/19 17:12 04/24/19 17:11 03/26/19 02:55 Escitalopram Oxalate (Lexapro) 20 mg DAILY ORAL 03/26/19 09:00 04/24/19 08:59 03/27/19 08:10 Furosemide (Lasix) 40 mg DAILY ORAL 03/26/19 09:00 04/24/19 08:59 03/27/19 08:09 Gabapentin (Neurontin) 600 mg TID@0000,0800,1600 ORAL 03/26/19 00:00 04/25/19 00:00 03/27/19 08:09 Gadobutrol (Gadavist) 7.5 mmol NOW PRN IV Radiology Procedure 03/26/19 19:15 03/30/19 19:09 Heparin Sodium (Porcine) (Heparin 5000 units/ml) 5,000 units EVERY 8 HOURS SUBQ 03/25/19 22:00 04/24/19 05:59 03/27/19 05:42 Lamotrigine (LaMICtal) 25 mg DAILY ORAL 03/26/19 09:00 04/24/19 08:59 03/27/19 08:09 Ondansetron HCl (Zofran) 4 mg Q4H PRN IVP Nausea & Vomiting 03/25/19 19:45 04/23/19 23:44 Oxycodone HCl (OxyCONTIN) 40 mg TID@0000,0800,1600 ORAL 03/26/19 00:00 04/02/19 00:00 03/27/19 08:10 Polyethylene Glycol (Miralax) 17 gm DAILY ORAL 03/27/19 16:00 04/24/19 08:59 Tamsulosin HCl (Flomax) 0.4 mg BEDTIME ORAL 03/25/19 21:00 04/24/19 00:00 03/26/19 21:03 Zolpidem Tartrate (Ambien) 5 mg HSPRN PRN ORAL Insomnia 03/26/19 11:45 04/02/19 06:44 03/27/19 03:30 Roxana Lay MD Mar 27, 2019 14:27
[2019-03-27 16:00] VITALS: BP 102/63
[2019-03-27] MEDS: Miralax 17gm pkt ORAL SCH (16:12)
--- NOTE | 2019-03-27 17:31 | Internal Med Progress Note ---
Subjective Date of Service: Mar 27, 2019 Physician Name Jeanmarie Smiley Attending Physician Jorge Benedict MD Current Medications Medications (Trade) Dose Ordered Sig/Kaela Route PRN Reason Start Time Stop Time Status Last Admin Dose Admin Aspirin (ASA) 81 mg DAILY ORAL 03/26/19 09:00 04/24/19 08:59 03/27/19 08:10 Benazepril HCl (Lotensin) 40 mg DAILY ORAL 03/26/19 09:00 04/24/19 08:59 03/27/19 08:10 Carisoprodol (Soma) 350 mg TID@0000,0800,1600 ORAL 03/26/19 00:00 04/25/19 00:00 03/27/19 16:12 Clonazepam (KlonoPIN) 1 mg TID@0000,0800,1600 ORAL 03/26/19 08:00 04/02/19 07:59 03/27/19 16:12 Diphenhydramine HCl (Benadryl) 50 mg Q6H PRN ORAL Itching 03/25/19 17:12 04/24/19 17:11 03/26/19 02:55 Escitalopram Oxalate (Lexapro) 20 mg DAILY ORAL 03/26/19 09:00 04/24/19 08:59 03/27/19 08:10 Furosemide (Lasix) 40 mg DAILY ORAL 03/26/19 09:00 04/24/19 08:59 03/27/19 08:09 Gabapentin (Neurontin) 600 mg TID@0000,0800,1600 ORAL 03/26/19 00:00 04/25/19 00:00 03/27/19 16:12 Gadobutrol (Gadavist) 7.5 mmol NOW PRN IV Radiology Procedure 03/26/19 19:15 03/30/19 19:09 Heparin Sodium (Porcine) (Heparin 5000 units/ml) 5,000 units EVERY 8 HOURS SUBQ 03/25/19 22:00 04/24/19 05:59 03/27/19 16:15 Lamotrigine (LaMICtal) 25 mg DAILY ORAL 03/26/19 09:00 04/24/19 08:59 03/27/19 08:09 Ondansetron HCl (Zofran) 4 mg Q4H PRN IVP Nausea & Vomiting 03/25/19 19:45 04/23/19 23:44 Oxycodone HCl (OxyCONTIN) 40 mg TID@0000,0800,1600 ORAL 03/26/19 00:00 04/02/19 00:00 03/27/19 16:12 Polyethylene Glycol (Miralax) 17 gm DAILY ORAL 03/27/19 16:00 04/24/19 08:59 03/27/19 16:12 Tamsulosin HCl (Flomax) 0.4 mg BEDTIME ORAL 03/25/19 21:00 04/24/19 00:00 03/26/19 21:03 Zolpidem Tartrate (Ambien) 5 mg HSPRN PRN ORAL Insomnia 03/26/19 11:45 04/02/19 06:44 03/27/19 03:30 Allergies: Coded Allergies: No Known Allergies (Unverified , 03/24/19) ROS Limited/Unobtainable: No Constitutional: Reports: no symptoms HEENT: Reports: no symptoms Cardiovascular: Reports: no symptoms Respiratory: Reports: no symptoms Gastrointestinal/Abdominal: Reports: no symptoms Genitourinary: Reports: no symptoms Neurologic/Psychiatric: Reports: no symptoms Subjective 63 YO M admitted with generalized weakness and lumbar radiculopathy. Cover for Int Med-DR Benedict Objective Last Vital Signs Date Time Temp Pulse Resp B/P (MAP) Pulse Ox O2 Delivery O2 Flow Rate FiO2 03/27/19 16:00 97.7 68 20 102/63 (76) 97 03/27/19 09:00 Room Air Laboratory Tests Test 03/27/19 05:42 White Blood Count 8.9 K/UL (4.8-10.8) Red Blood Count 4.02 M/UL (4.70-6.10) L Hemoglobin 13.1 G/DL (14.2-18.0) L Hematocrit 37.8 % (42.0-52.0) L Mean Corpuscular Volume 94 FL (80-99) Mean Corpuscular Hemoglobin 32.7 PG (27.0-31.0) H Mean Corpuscular Hemoglobin Concent 34.8 G/DL (32.0-36.0) Red Cell Distribution Width 11.0 % (11.6-14.8) L Platelet Count 208 K/UL (150-450) Mean Platelet Volume 6.1 FL (6.5-10.1) L Neutrophils (%) (Auto) 46.8 % (45.0-75.0) Lymphocytes (%) (Auto) 40.1 % (20.0-45.0) Monocytes (%) (Auto) 8.2 % (1.0-10.0) Eosinophils (%) (Auto) 3.7 % (0.0-3.0) H Basophils (%) (Auto) 1.2 % (0.0-2.0) Sodium Level 140 MMOL/L (136-145) Potassium Level 3.9 MMOL/L (3.5-5.1) Chloride Level 104 MMOL/L (98-107) Carbon Dioxide Level 30 MMOL/L (21-32) Anion Gap 6 mmol/L (5-15) Blood Urea Nitrogen 15 mg/dL (7-18) Creatinine 0.7 MG/DL (0.55-1.30) Estimat Glomerular Filtration Rate > 60 mL/min (>60) Glucose Level 105 MG/DL (74-106) Calcium Level 8.7 MG/DL (8.5-10.1) Microbiology Date/Time Source Procedure Growth Status 03/24/19 18:15 Blood Blood Culture - Preliminary NO GROWTH AFTER 48 HOURS Resulted 03/24/19 17:55 Blood Blood Culture - Preliminary NO GROWTH AFTER 48 HOURS Resulted 03/24/19 19:30 Nasal Nares MRSA Culture - Final NO METHICILLIN RESISTANT STAPH AUREUS... Complete 03/24/19 19:30 Rectum - Final NO CARBAPENEM-RESISTANT ENTEROBACTERI... Complete 03/24/19 19:30 Rectum VRE Culture - Final NO VANCOMYCIN RESISTANT ENTEROCOCCUS ... Complete Intake and Output 03/26/19 03/27/19 19:00 07:00 Intake Total 140 ml Output Total 1050 ml Balance 140 ml -1050 ml Intake Oral 140 ml Output Urine Total 1050 ml # Voids 2 Objective PHYSICAL EXAMINATION: GENERAL: The patient is well-developed and well-nourished male, in no apparent distress. HEENT: Eyes, pupils equal and responsive to light and accommodation. Extraocular movements are intact. NECK: Supple without lymphadenopathy. CHEST: Lungs are clear to auscultation bilaterally without wheezes or rales. CARDIOVASCULAR: Regular rate. S1, S2 normal without murmurs, rubs, or gallops. ABDOMEN: Soft, nontender, nondistended. Positive bowel sounds. No evidence of hepatosplenomegaly. Currently, no rebound or guarding noted. EXTREMITIES: Negative for clubbing, cyanosis, or edema. RECTAL/GENITAL: Not performed. NEUROLOGIC: Left leg is 3/5 motor strength compared to 5/5 on the right. Deep tendon reflexes are 2+ plantar. Assessment/Plan Assessment/Plan ASSESSMENT: This is a 63-year-old male. 1. Generalized weakness. 2. Chronic low back pain. 3. Left radiculopathy. 4. Lumbar stenosis. 5. Hypertension. 6. Benign prostatic hypertrophy. 7. Anxiety disorder. 8. Obesity. 9. Bipolar depression. 10. S/P lumbar laminectomy; lumbar stenosis TREATMENT: 1. Generalized weakness/low back pain/left radiculopathy/lumbar stenosis. Continue OxyContin as above. A Neurology consultation has been obtained with Dr. Allan Mendes. An MRI of the lumbar spine is pending. 2. Hypertension. Continue benazepril as above. 3. Benign prostatic hypertrophy. Continue tamsulosin as above. 4. Anxiety disorder/bipolar depression. Continue Lamictal and Lexapro as above. 5. Obesity. 6. Physical therapy Jeanmarie Smiley MD Mar 27, 2019 17:31
--- NOTE | 2019-03-27 19:22 | NUR ---
HAND-OFF: Report given to REJI Barksdale.
--- NOTE | 2019-03-27 19:38 | NUR ---
NURSE NOTES: Received report from REJI Montesinos. Patient is in bed, awake and alertx4. On room air with no signs of distress or SOB. IV intact. Bed locked and in lowest position. Call light in reach. Will continue to monitor the patient.
[2019-03-27 20:00] VITALS: BP 108/62
[2019-03-27] MEDS: Tamsulosin 0.4mg cap ORAL SCH (21:07)
[2019-03-27 23:51] VITALS: BP 124/80
[2019-03-28] MEDS: Zolpidem 5mg tab ORAL PRN (03:59)
[2019-03-28] MEDS: Heparin 5000 units/ml inj SUBQ SCH ×3 (05:29→21:56)
--- NOTE | 2019-03-28 07:22 | NUR ---
HAND-OFF: Report given to REJI Vogel and Tammy Eason RN.
[2019-03-28 08:00] VITALS: BP 98/68
[2019-03-28] MEDS: oxyCONTIN 20mg tab ORAL SCH ×2 (08:15→15:14)
--- NOTE | 2019-03-28 08:41 | NUR ---
Received report from REJI Barksdale. Pt sleeping in bed. No apparent distress noted. Bed locked in lowest position, side rails up, call light within reach.
[2019-03-28] MEDS: Miralax 17gm pkt ORAL SCH (09:00)
[2019-03-28] MEDS: Aspirin Baby 81mg ORAL SCH (09:00)
[2019-03-28] MEDS: Furosemide 40mg tab ORAL SCH (09:00)
--- NOTE | 2019-03-28 09:30 | NUR ---
Pt refused 0900 medications. Explained the benefits and risks of taking scheduled medications. Will notify the MD.
--- NOTE | 2019-03-28 11:28 | NUR ---
PT NOTE Attempted x2 to see patient for PT treatment, patient sleeping. Lela MENDOZA notified, will re-attempt later as schedule permits.
[2019-03-28 12:00] VITALS: BP 120/72
--- NOTE | 2019-03-28 14:06 | Pulmonology Progress Note ---
Assessment/Plan Problems: (1) Lumbar disc disease (2) Scoliosis (3) Malingering Assessment/Plan symptomatic treatment Neuro evaluation dvt prophylaxis wants laxis to be discontinued Subjective ROS Limited/Unobtainable: No HEENT: Repors: no symptoms Allergies: Coded Allergies: No Known Allergies (Unverified , 03/24/19) Objective Last 24 Hour Vital Signs Date Time Temp Pulse Resp B/P (MAP) Pulse Ox O2 Delivery O2 Flow Rate FiO2 03/28/19 12:00 97.5 65 16 120/72 (88) 98 03/28/19 09:00 98/68 03/28/19 09:00 Room Air 03/28/19 08:00 98.4 69 18 98/68 (78) 97 03/27/19 23:51 98.8 67 20 124/80 (95) 97 03/27/19 20:06 Room Air 03/27/19 20:00 97.9 78 20 108/62 (77) 95 03/27/19 16:42 98.3 03/27/19 16:42 98.3 03/27/19 16:00 97.7 68 20 102/63 (76) 97 Intake and Output 03/27/19 03/28/19 18:59 06:59 Intake Total 960 ml Output Total 400 ml Balance 960 ml -400 ml Intake Oral 960 ml Output Urine Total 400 ml # Voids 1 General Appearance: WD/WN HEENT: normocephalic, atraumatic Respiratory/Chest: chest wall non-tender, lungs clear Cardiovascular: normal peripheral pulses, regularly irregular Extremities: no cyanosis, no clubbing Current Medications Medications (Trade) Dose Ordered Sig/Kaela Route PRN Reason Start Time Stop Time Status Last Admin Dose Admin Aspirin (ASA) 81 mg DAILY ORAL 03/26/19 09:00 04/24/19 08:59 03/27/19 08:10 Benazepril HCl (Lotensin) 40 mg DAILY ORAL 03/26/19 09:00 04/24/19 08:59 03/27/19 08:10 Carisoprodol (Soma) 350 mg TID@0000,0800,1600 ORAL 03/26/19 00:00 04/25/19 00:00 03/28/19 08:13 Clonazepam (KlonoPIN) 1 mg TID@0000,0800,1600 ORAL 03/26/19 08:00 04/02/19 07:59 03/28/19 08:15 Diphenhydramine HCl (Benadryl) 50 mg Q6H PRN ORAL Itching 03/25/19 17:12 04/24/19 17:11 03/28/19 00:32 Escitalopram Oxalate (Lexapro) 20 mg DAILY ORAL 03/26/19 09:00 04/24/19 08:59 03/27/19 08:10 Furosemide (Lasix) 40 mg DAILY ORAL 03/26/19 09:00 04/24/19 08:59 03/27/19 08:09 Gabapentin (Neurontin) 600 mg TID@0000,0800,1600 ORAL 03/26/19 00:00 04/25/19 00:00 03/28/19 08:12 Gadobutrol (Gadavist) 7.5 mmol NOW PRN IV Radiology Procedure 03/26/19 19:15 03/30/19 19:09 Heparin Sodium (Porcine) (Heparin 5000 units/ml) 5,000 units EVERY 8 HOURS SUBQ 03/25/19 22:00 04/24/19 05:59 03/28/19 13:15 Lamotrigine (LaMICtal) 25 mg DAILY ORAL 03/26/19 09:00 04/24/19 08:59 03/27/19 08:09 Nicotine (Nicoderm) 1 patch Q24H TDERMAL 03/27/19 22:00 04/26/19 21:59 03/27/19 22:11 Ondansetron HCl (Zofran) 4 mg Q4H PRN IVP Nausea & Vomiting 03/25/19 19:45 04/23/19 23:44 Oxycodone HCl (OxyCONTIN) 40 mg TID@0000,0800,1600 ORAL 03/26/19 00:00 04/02/19 00:00 03/28/19 08:15 Polyethylene Glycol (Miralax) 17 gm DAILY ORAL 03/27/19 16:00 04/24/19 08:59 03/27/19 16:12 Tamsulosin HCl (Flomax) 0.4 mg BEDTIME ORAL 03/25/19 21:00 04/24/19 00:00 03/27/19 21:07 Zolpidem Tartrate (Ambien) 5 mg HSPRN PRN ORAL Insomnia 03/26/19 11:45 04/02/19 06:44 03/28/19 03:59 Roxana Lay MD Mar 28, 2019 14:06
--- NOTE | 2019-03-28 14:53 | NUR ---
*-* DISCHARGE PLANNING *-* PATIENT HAS BEEN REFERRED BACK TO: [facility] P: [phone] F: [phone]
--- NOTE | 2019-03-28 15:03 | Cardiology Report ---
APPROVED REPORT EKG Measurement Heart [id number] Normal sinus rhythm Low voltage QRS Borderline ECG
--- NOTE | 2019-03-28 15:20 | NUR ---
NURSE NOTES: Discussed DC with pt, Pt is refusing to be DC'd at this time as he states he wants to speak with CM and needs a wheelchair at DC. RN notified VIKASH Corbett and asked if she would speak with pt
[2019-03-28 16:00] VITALS: BP 145/80
--- NOTE | 2019-03-28 16:54 | NUR ---
OXYGEN SYSTEM TESTER NOTES RECEIVED A CALL FROM TERESE BINDER LOCKSTITCH FROM [facility], STATED PT CAN NOT RETURN TO [facility] DUE TO A LARGE BALANCED OWED TO THE FACILITY. MADE AWARE.
--- NOTE | 2019-03-28 17:55 | NUR ---
NURSE NOTES: RN notified Dr. Benedict (in person) that pt will not be DC'd to [facility] due to large balance being owed by pt. Dr. Benedict stated that [facility] set up another facility for the pt to be DC'd to in [place]. RN contacted [facility] regarding new facility. Per [facility], pt will go to [facility] [phone]. RN contacted [facility], they are not aware of admission. RN contacted [facility], they will contact [facility] and send pt information and asked to wait 10 minutes to call again. Addendum: 03/28/19 at 1829 by BERNADINE WILKERSON RN NURSE NOTES: RN faxed all clinical information (H&P, Progress notes, Medication list, Insurance info, facesheet) per request of joel Tomlinsonelectrical prospecting supervisor, at [facility]. Asked [facility] to contact [facility] if patient will be accepted.
--- NOTE | 2019-03-28 18:53 | Internal Med Progress Note ---
Subjective Physician Name Jorge Benedict Attending Physician Jorge Benedict MD Current Medications Medications (Trade) Dose Ordered Sig/Kaela Route PRN Reason Start Time Stop Time Status Last Admin Dose Admin Aspirin (ASA) 81 mg DAILY ORAL 03/26/19 09:00 04/24/19 08:59 03/27/19 08:10 Benazepril HCl (Lotensin) 40 mg DAILY ORAL 03/26/19 09:00 04/24/19 08:59 03/27/19 08:10 Carisoprodol (Soma) 350 mg TID@0000,0800,1600 ORAL 03/26/19 00:00 04/25/19 00:00 03/28/19 15:14 Clonazepam (KlonoPIN) 1 mg TID@0000,0800,1600 ORAL 03/26/19 08:00 04/02/19 07:59 03/28/19 15:14 Diphenhydramine HCl (Benadryl) 50 mg Q6H PRN ORAL Itching 03/25/19 17:12 04/24/19 17:11 03/28/19 00:32 Escitalopram Oxalate (Lexapro) 20 mg DAILY ORAL 03/26/19 09:00 04/24/19 08:59 03/27/19 08:10 Furosemide (Lasix) 40 mg DAILY ORAL 03/26/19 09:00 04/24/19 08:59 03/27/19 08:09 Gabapentin (Neurontin) 600 mg TID@0000,0800,1600 ORAL 03/26/19 00:00 04/25/19 00:00 03/28/19 15:14 Gadobutrol (Gadavist) 7.5 mmol NOW PRN IV Radiology Procedure 03/26/19 19:15 03/30/19 19:09 Heparin Sodium (Porcine) (Heparin 5000 units/ml) 5,000 units EVERY 8 HOURS SUBQ 03/25/19 22:00 04/24/19 05:59 03/28/19 13:15 Lamotrigine (LaMICtal) 25 mg DAILY ORAL 03/26/19 09:00 04/24/19 08:59 03/27/19 08:09 Nicotine (Nicoderm) 1 patch Q24H TDERMAL 03/27/19 22:00 04/26/19 21:59 03/27/19 22:11 Ondansetron HCl (Zofran) 4 mg Q4H PRN IVP Nausea & Vomiting 03/25/19 19:45 04/23/19 23:44 Oxycodone HCl (OxyCONTIN) 40 mg TID@0000,0800,1600 ORAL 03/26/19 00:00 04/02/19 00:00 03/28/19 15:14 Polyethylene Glycol (Miralax) 17 gm DAILY ORAL 03/27/19 16:00 04/24/19 08:59 03/28/19 09:00 Tamsulosin HCl (Flomax) 0.4 mg BEDTIME ORAL 03/25/19 21:00 04/24/19 00:00 03/27/19 21:07 Zolpidem Tartrate (Ambien) 5 mg HSPRN PRN ORAL Insomnia 03/26/19 11:45 04/02/19 06:44 03/28/19 03:59 Allergies: Coded Allergies: No Known Allergies (Unverified , 03/24/19) Subjective awake, alert, responsive, NAD, No CP or SOB Objective Last Vital Signs Date Time Temp Pulse Resp B/P (MAP) Pulse Ox O2 Delivery O2 Flow Rate FiO2 03/28/19 16:00 98.9 80 18 145/80 (101) 100 03/28/19 09:00 Room Air Intake and Output 03/27/19 03/28/19 19:00 07:00 Intake Total 960 ml Output Total 400 ml Balance 960 ml -400 ml Intake Oral 960 ml Output Urine Total 400 ml # Voids 1 Objective General: No acute distress, awake and alert HEENT: NCAT, sclera anicteric, PERRL, EOMI. Neck: Supple, no significant jugular venous distention, Lungs: Good inspiratory effort,, no Wheeze or Rales. Heart: Regular rate and rhythm, normal S1/S2, no murmurs Abdomen: soft, nontender, nondistended. Normoactive bowel sounds, Obesity. / Rectal: Refused and deferred. Extremities: No Cyanosis , clubbing or edema. Neuro: A&O x 3, Able to move all extremities, Lower extremities weakness Skin: warm, no rash Psych: Normal mood and affect Assessment/Plan Assessment/Plan 1. Generalized weakness. 2. Chronic low back pain. 3. Left radiculopathy. 4. Lumbar stenosis. 5. Hypertension. 6. Benign prostatic hypertrophy. 7. Anxiety disorder. 8. Obesity. 9. Bipolar depression. 10. S/P lumbar laminectomy; lumbar stenosis 11. Obesity. 12. Malingering TREATMENT: 1. Generalized weakness/low back pain/left radiculopathy/lumbar stenosis. Continue OxyContin as above. A Neurology consultation has been obtained with Dr. Allan Mendes. 2. Hypertension. Continue benazepril as above. 3. Benign prostatic hypertrophy. Continue tamsulosin as above. 4. Anxiety disorder/bipolar depression. Continue Lamictal and Lexapro as above. 5. Obesity. 6. Physical therapy DC to [facility] MRI of [place] spine: Left convex lumbar scoliosis. Multilevel degenerative disease involving the intervertebral discs and facets. L1-2: Normal. L2-3: Narrowing of the right lateral recess and mild right foraminal stenosis. Facet arthropathy. L3-4: Status post laminectomy Moderate degenerative disc disease. Moderate right lateral recess/neural foraminal stenosis. L4-5: Status post laminectomy. Moderate degenerative disc disease. Narrowing of the right lateral recess and moderate bilateral foraminal stenosis slightly worse on the left compared to the right. Facet arthropathy. L5-S1: Facet arthropathy. Jorge Benedict MD Mar 28, 2019 18:53
--- NOTE | 2019-03-28 19:19 | NUR ---
HAND-OFF: Report given to Miguelito, RN and REJI Pavon. Endorsed plan for [facility] and waiting for response from [facility]. Pt stating he does not want to go to [facility] in [place] and is asking to go to [facility] and wants to talk to latex dipper and ENT MD before leaving. Pt is also requesting a wheelchair at [place].
--- NOTE | 2019-03-28 19:25 | NUR ---
Nurses notes. Patient is in bed awake, alert and verbal. Breathing on room air.No acte distress or SOB noted. Pt stated that he does not want to go to [facility],Pt states he want to go to a facility in [facility]. Bed in low and locked position. Call light within reach. Patient will be monitored.
--- NOTE | 2019-03-28 19:26 | NUR ---
NURSE NOTES: Notified Dr. Benedict that pt is stating he does not want to leave [facility] [place] until he speaks with a bronze chaser, ENT MD, and gets a new wheelchair. Pt states he want to go to a facility in [facility]. Notified Dr. Benedict that we are waiting to hear back from [facility] if pt will be accepted.
[2019-03-28 20:00] VITALS: BP 118/70
[2019-03-28] MEDS: Tamsulosin 0.4mg cap ORAL SCH (21:00)
--- NOTE | 2019-03-28 21:32 | NUR ---
NURSE NOTES: Pt is in bed, awake and verbal. No acute distress noted. Pt is able push wheelchair in the hallway. Pt refuses to go to [facility]. Pt states that he wants to talk to bottle caser and possibly have a placement in [facility]. Pt is on Fall precaution. Bed locked low in position,side rails up and call light within reach. Pt instructed to call for assistance before getting out of bed. Pt will be monitored. Trainee, Kylie Ware RN will be assisting in the care of this patient.
[2019-03-29] VITALS: BP 140/83
[2019-03-29] MEDS: oxyCONTIN 20mg tab ORAL SCH ×3 (00:04→16:22)
[2019-03-29] MEDS: Zolpidem 5mg tab ORAL PRN ×2 (01:56→02:57)
--- NOTE | 2019-03-29 02:22 | NUR ---
NURSE NOTES: Pt is in awake, alert and verbal, sitting in the W/C. No C/O pain or discomfort @this time. Meds administered as ordered and assisted as needed. Bed in low and locked position, bed alarm is on. Call light within reach, walker at bedside. Pt will be monitored.
[2019-03-29 04:00] VITALS: BP 114/67
[2019-03-29] MEDS: Heparin 5000 units/ml inj SUBQ SCH ×2 (06:14→21:16)
--- NOTE | 2019-03-29 06:34 | NUR ---
NURSE NOTES: Didn't receive any call back from [facility] after clinicals were sent during last shift.
--- NOTE | 2019-03-29 07:20 | NUR ---
HAND-OFF: Report given to Jenaro Rodriguez RN and Tammy de los santos RN..
--- NOTE | 2019-03-29 07:40 | NUR ---
NURSE NOTES: Received report from REJI Espinal. Pt is sleeping in bed, on RA, IV site intact. No apparent distress noted. Bed locked in lowest position, side rails up, call light within reach.
[2019-03-29 08:00] VITALS: BP_SYST 117; BP_SYST 134; BP_DIAS 65; BP_DIAS 73
[2019-03-29] MEDS: Miralax 17gm pkt ORAL SCH (09:00)
[2019-03-29] MEDS: Aspirin Baby 81mg ORAL SCH (09:25)
[2019-03-29] MEDS: Furosemide 40mg tab ORAL SCH (09:27)
--- NOTE | 2019-03-29 09:30 | NUR ---
NURSE NOTES: PT ANGRY WHEN RN WENT TO PT'S ROOM TO ADMINISTER SCHEDULED 0900 MEDS. PT STATES "I HAVE ALWAYS TAKEN MY MEDS ALL TOGETHER AT 8:00 IN THE MORNING. I DON'T SEE WHY THIS IS A PROBLEM HERE". RN EDUCATED PT THERE ARE HIGH RISK MEDICATIONS LIKE BP MEDS, KLONOPIN, OXYCONTIN THAT CAN CAUSE FATAL RESPIRATORY DEPRESSION AND DECREASED BP. PT CONTINUED TO STATE IT SHOULD ALL BE GIVEN TOGETHER BECAUSE PT DOES NOT WANT TO BE BOTHERED AGAIN AT 0800 AND AGAIN AT 0900 HRS. RN EDUCATED PT WE CAN ASK PRIMARY DOCTOR REGARDING PT'S REQUEST TO CHANGE MEDS TO 0800, 1600, AND 0000 HRS.
[2019-03-29 12:00] VITALS: BP 121/72
--- NOTE | 2019-03-29 13:52 | NUR ---
PT Note Attempted to see patient for treatment but patient refused. RN was made aware.
[2019-03-29 16:00] VITALS: BP 118/67
--- NOTE | 2019-03-29 17:55 | Internal Med Progress Note ---
Subjective Date of Service: Mar 29, 2019 Physician Name Jeanmarie Smiley Attending Physician Jorge Benedict MD Current Medications Medications (Trade) Dose Ordered Sig/Kaela Route PRN Reason Start Time Stop Time Status Last Admin Dose Admin Aspirin (ASA) 81 mg DAILY ORAL 03/26/19 09:00 04/24/19 08:59 03/29/19 09:25 Benazepril HCl (Lotensin) 40 mg DAILY ORAL 03/26/19 09:00 04/24/19 08:59 03/27/19 08:10 Carisoprodol (Soma) 350 mg TID@0000,0800,1600 ORAL 03/26/19 00:00 04/25/19 00:00 03/29/19 16:21 Clonazepam (KlonoPIN) 1 mg TID@0000,0800,1600 ORAL 03/26/19 08:00 04/02/19 07:59 03/29/19 16:19 Diphenhydramine HCl (Benadryl) 50 mg Q6H PRN ORAL Itching 03/25/19 17:12 04/24/19 17:11 03/29/19 06:10 Escitalopram Oxalate (Lexapro) 20 mg DAILY ORAL 03/26/19 09:00 04/24/19 08:59 03/29/19 09:34 Furosemide (Lasix) 40 mg DAILY ORAL 03/26/19 09:00 04/24/19 08:59 03/29/19 09:27 Gabapentin (Neurontin) 600 mg TID@0000,0800,1600 ORAL 03/26/19 00:00 04/25/19 00:00 03/29/19 16:19 Gadobutrol (Gadavist) 7.5 mmol NOW PRN IV Radiology Procedure 03/26/19 19:15 03/30/19 19:09 Heparin Sodium (Porcine) (Heparin 5000 units/ml) 5,000 units Q12HR@0800,2000 SUBQ 03/29/19 20:00 04/28/19 19:59 Lamotrigine (LaMICtal) 25 mg DAILY ORAL 03/26/19 09:00 04/24/19 08:59 03/27/19 08:09 Nicotine (Nicoderm) 1 patch Q24H TDERMAL 03/27/19 22:00 04/26/19 21:59 03/28/19 21:54 Ondansetron HCl (Zofran) 4 mg Q4H PRN IVP Nausea & Vomiting 03/25/19 19:45 04/23/19 23:44 Oxycodone HCl (OxyCONTIN) 40 mg TID@0000,0800,1600 ORAL 03/26/19 00:00 04/02/19 00:00 03/29/19 16:22 Polyethylene Glycol (Miralax) 17 gm DAILY ORAL 03/27/19 16:00 04/24/19 08:59 03/29/19 09:00 Tamsulosin HCl (Flomax) 0.4 mg BEDTIME ORAL 03/25/19 21:00 04/24/19 00:00 03/27/19 21:07 Zolpidem Tartrate (Ambien) 5 mg HSPRN PRN ORAL Insomnia 03/26/19 11:45 04/02/19 06:44 03/29/19 02:57 Allergies: Coded Allergies: No Known Allergies (Unverified , 03/24/19) ROS Limited/Unobtainable: No Constitutional: Reports: no symptoms HEENT: Reports: no symptoms Cardiovascular: Reports: no symptoms Respiratory: Reports: no symptoms Gastrointestinal/Abdominal: Reports: no symptoms Genitourinary: Reports: no symptoms Neurologic/Psychiatric: Reports: no symptoms Subjective 63 YO M admitted with generalized weakness and lumbar radiculopathy. Cover for Int Avery-DR Benedict Objective Last Vital Signs Date Time Temp Pulse Resp B/P (MAP) Pulse Ox O2 Delivery O2 Flow Rate FiO2 03/29/19 16:00 98.3 71 23 118/67 (84) 98 03/29/19 09:00 Room Air Intake and Output 03/28/19 03/29/19 18:59 06:59 Intake Total 300 ml Output Total 400 ml Balance -100 ml Intake Oral 300 ml Output Urine Total 400 ml # Voids 1 Objective PHYSICAL EXAMINATION: GENERAL: The patient is well-developed and well-nourished male, in no apparent distress. HEENT: Eyes, pupils equal and responsive to light and accommodation. Extraocular movements are intact. NECK: Supple without lymphadenopathy. CHEST: Lungs are clear to auscultation bilaterally without wheezes or rales. CARDIOVASCULAR: Regular rate. S1, S2 normal without murmurs, rubs, or gallops. ABDOMEN: Soft, nontender, nondistended. Positive bowel sounds. No evidence of hepatosplenomegaly. Currently, no rebound or guarding noted. EXTREMITIES: Negative for clubbing, cyanosis, or edema. RECTAL/GENITAL: Not performed. NEUROLOGIC: Left leg is 3/5 motor strength compared to 5/5 on the right. Deep tendon reflexes are 2+ plantar. Assessment/Plan Assessment/Plan ASSESSMENT: This is a 63-year-old male. 1. Generalized weakness. 2. Chronic low back pain. 3. Left radiculopathy. 4. Lumbar stenosis. 5. Hypertension. 6. Benign prostatic hypertrophy. 7. Anxiety disorder. 8. Obesity. 9. Bipolar depression. 10. S/P lumbar laminectomy; lumbar stenosis TREATMENT: 1. Generalized weakness/low back pain/left radiculopathy/lumbar stenosis. Continue OxyContin as above. A Neurology consultation has been obtained with Dr. Allan Mendes. An MRI of the lumbar spine is pending. 2. Hypertension. Continue benazepril as above. 3. Benign prostatic hypertrophy. Continue tamsulosin as above. 4. Anxiety disorder/bipolar depression. Continue Lamictal and Lexapro as above. 5. Obesity. 6. Physical therapy 7. Discharge planning: unable to return to [facility] Ji Jeanmarie Aguilera MD Mar 29, 2019 17:55
--- NOTE | 2019-03-29 19:54 | NUR ---
NURSE NOTES: Pt received in bed awake alert and able to make needs known, call light within reach, no c/o pain or signs of distress, will continue to monitor.
--- NOTE | 2019-03-29 19:55 | NUR ---
HAND-OFF: Report given to Anna GARCIA RN.
[2019-03-29 20:00] VITALS: BP 122/66
[2019-03-29] MEDS: Tamsulosin 0.4mg cap ORAL SCH (21:10)
[2019-03-30] VITALS: BP 126/68
[2019-03-30] MEDS: oxyCONTIN 20mg tab ORAL SCH ×3 (00:11→15:55)
[2019-03-30] MEDS ORDERED: Hydrocortisone 1% Cr 15gm TOPIC PRN (00:30)
[2019-03-30] MEDS: Zolpidem 5mg tab ORAL PRN ×2 (02:23→03:08)
--- NOTE | 2019-03-30 07:09 | NUR ---
HAND-OFF: Report given to REJI Eason and REJI Munoz.
--- NOTE | 2019-03-30 07:20 | NUR ---
NURSE NOTES: Received report from REJI Holder. Pt sleeping in bed. Pt on RA, no apparent distress noted. Bed locked in lowest position, side rails up, call light within reach.
[2019-03-30 08:00] VITALS: BP 119/63
[2019-03-30] MEDS: Heparin 5000 units/ml inj SUBQ SCH ×2 (08:00→21:12)
--- NOTE | 2019-03-30 08:20 | NUR ---
RN brought in pt's 0800 scheduled medications, and pt stated that he doesn't want to be disturbed at any other times, only at 0800, 1600, and 0000. RN educated the pt that he has multiple high risk medications, so all of them cannot be given at the same time (0800), and also due to his 0800 BP and HR being 119/63 and 65. RN educated the benefits and risks of taking the medications on scheduled times. However, pt was getting more upset and still demanding that all his medication be given all at once at 0800. Since his BP and HR was on the lower side, pt refused Lotensin and RN held Lasix. Pt was very upset and uncooperative, made inappropriate, racist comments and belittling some nurses.
[2019-03-30] MEDS: Aspirin Baby 81mg ORAL SCH (08:23)
[2019-03-30] MEDS: Furosemide 40mg tab ORAL SCH (08:29)
--- NOTE | 2019-03-30 11:00 | NUR ---
CASE MANAGEMENT: REVIEW 03/30/2019 SI:WEAKNESS. SPINAL STENOSIS. T 97.5 HR 64 RR 20 B/P 119/63 SATS 96% ON RA NO LABS TODAY IS:FLOMAX PO QHS ASA PO QD LOTENSIN PO QD LEXAPRO PO QD LASIX PO QD LAMICTAL PO QD MED/SURG
--- NOTE | 2019-03-30 11:05 | NUR ---
RN spoke with VIKASH Hewitt regarding pt's request to be transferred to [facility] in [place].
--- NOTE | 2019-03-30 11:47 | NUR ---
PT note Attempted to see patient for physical therapy but patient refused. If patient continues to refuse and participate with PT, will DC physical therapy.
[2019-03-30 12:00] VITALS: BP 137/76
--- NOTE | 2019-03-30 15:54 | Internal Med Progress Note ---
Subjective Date of Service: Mar 30, 2019 Physician Name Jeanmarie Smiley Attending Physician Jorge Benedict MD Current Medications Medications (Trade) Dose Ordered Sig/Kaela Route PRN Reason Start Time Stop Time Status Last Admin Dose Admin Aspirin (ASA) 81 mg DAILY ORAL 03/26/19 09:00 04/24/19 08:59 03/30/19 08:23 Benazepril HCl (Lotensin) 40 mg DAILY ORAL 03/26/19 09:00 04/24/19 08:59 03/27/19 08:10 Carisoprodol (Soma) 350 mg TID@0000,0800,1600 ORAL 03/26/19 00:00 04/25/19 00:00 03/30/19 08:06 Clonazepam (KlonoPIN) 1 mg TID@0000,0800,1600 ORAL 03/26/19 08:00 04/02/19 07:59 03/30/19 08:06 Diphenhydramine HCl (Benadryl) 50 mg Q6H PRN ORAL Itching 03/25/19 17:12 04/24/19 17:11 03/30/19 03:55 Escitalopram Oxalate (Lexapro) 20 mg DAILY ORAL 03/26/19 09:00 04/24/19 08:59 03/30/19 08:23 Furosemide (Lasix) 40 mg DAILY ORAL 03/26/19 09:00 04/24/19 08:59 03/29/19 09:27 Gabapentin (Neurontin) 600 mg TID@0000,0800,1600 ORAL 03/26/19 00:00 04/25/19 00:00 03/30/19 08:05 Gadobutrol (Gadavist) 7.5 mmol NOW PRN IV Radiology Procedure 03/26/19 19:15 03/30/19 19:09 Heparin Sodium (Porcine) (Heparin 5000 units/ml) 5,000 units Q12HR@0800,2000 SUBQ 03/29/19 20:00 04/28/19 19:59 03/29/19 21:16 Hydrocortisone (Hydrocortisone) 1 applic TID PRN TOPIC Itching 03/30/19 00:30 04/29/19 00:29 Lamotrigine (LaMICtal) 25 mg DAILY ORAL 03/26/19 09:00 04/24/19 08:59 03/30/19 08:23 Nicotine (Nicoderm) 1 patch Q24H TDERMAL 03/27/19 22:00 04/26/19 21:59 03/29/19 21:13 Ondansetron HCl (Zofran) 4 mg Q4H PRN IVP Nausea & Vomiting 03/25/19 19:45 04/23/19 23:44 Oxycodone HCl (OxyCONTIN) 40 mg TID@0000,0800,1600 ORAL 03/26/19 00:00 04/02/19 00:00 03/30/19 08:06 Polyethylene Glycol (Miralax) 17 gm DAILY@1600 ORAL 03/30/19 16:00 04/29/19 15:59 Tamsulosin HCl (Flomax) 0.4 mg BEDTIME ORAL 03/25/19 21:00 04/24/19 00:00 03/29/19 21:10 Zolpidem Tartrate (Ambien) 5 mg HSPRN PRN ORAL Insomnia 03/26/19 11:45 04/02/19 06:44 03/30/19 03:08 Allergies: Coded Allergies: No Known Allergies (Unverified , 03/24/19) ROS Limited/Unobtainable: No Constitutional: Reports: no symptoms HEENT: Reports: no symptoms Cardiovascular: Reports: no symptoms Respiratory: Reports: no symptoms Gastrointestinal/Abdominal: Reports: no symptoms Genitourinary: Reports: no symptoms Neurologic/Psychiatric: Reports: no symptoms Subjective 63 YO M admitted with generalized weakness and lumbar radiculopathy. Cover for Int [facility]-DR Benedict Objective Last Vital Signs Date Time Temp Pulse Resp B/P (MAP) Pulse Ox O2 Delivery O2 Flow Rate FiO2 03/30/19 12:00 97.3 72 18 137/76 (96) 96 03/30/19 09:00 Room Air Intake and Output 03/29/19 03/30/19 19:00 07:00 Intake Total 1400 ml Output Total 1400 ml Balance 1400 ml -1400 ml Intake Oral 1400 ml Output Urine Total 1400 ml # Voids 3 # Bowel Movements 1 Objective PHYSICAL EXAMINATION: GENERAL: The patient is well-developed and well-nourished male, in no apparent distress. HEENT: Eyes, pupils equal and responsive to light and accommodation. Extraocular movements are intact. NECK: Supple without lymphadenopathy. CHEST: Lungs are clear to auscultation bilaterally without wheezes or rales. CARDIOVASCULAR: Regular rate. S1, S2 normal without murmurs, rubs, or gallops. ABDOMEN: Soft, nontender, nondistended. Positive bowel sounds. No evidence of hepatosplenomegaly. Currently, no rebound or guarding noted. EXTREMITIES: Negative for clubbing, cyanosis, or edema. RECTAL/GENITAL: Not performed. NEUROLOGIC: Left leg is 3/5 motor strength compared to 5/5 on the right. Deep tendon reflexes are 2+ plantar. Assessment/Plan Assessment/Plan ASSESSMENT: This is a 63-year-old male. 1. Generalized weakness. 2. Chronic low back pain. 3. Left radiculopathy. 4. Lumbar stenosis. 5. Hypertension. 6. Benign prostatic hypertrophy. 7. Anxiety disorder. 8. Obesity. 9. Bipolar depression. 10. S/P lumbar laminectomy; lumbar stenosis TREATMENT: 1. Generalized weakness/low back pain/left radiculopathy/lumbar stenosis. Continue OxyContin as above. A Neurology consultation has been obtained with Dr. Allan Mendes. An MRI of the lumbar spine is pending. 2. Hypertension. Continue benazepril as above. 3. Benign prostatic hypertrophy. Continue tamsulosin as above. 4. Anxiety disorder/bipolar depression. Continue Lamictal and Lexapro as above. 5. Obesity. 6. Physical therapy 7. [facility] Mar 30, 2019 15:54
[2019-03-30] MEDS: Miralax 17gm pkt ORAL SCH (15:55)
[2019-03-30 16:00] VITALS: BP 118/69
--- NOTE | 2019-03-30 18:10 | NUR ---
Pt refused to tell whether he had a BM or not. Pt stated, "Don't worry about my pee and poo, mom. Just put that he's going every day."
--- NOTE | 2019-03-30 19:07 | NUR ---
HAND-OFF: Report given to REJI Holder.
--- NOTE | 2019-03-30 19:43 | NUR ---
NURSE NOTES: Pt received in bed awake alert and oriented, able to make needs known, call light within reach, no c/o pain or signs of distress, will continue to monitor.
[2019-03-30 20:00] VITALS: BP 113/60
[2019-03-30] MEDS: Tamsulosin 0.4mg cap ORAL SCH (21:09)
[2019-03-31] VITALS: BP 118/65
[2019-03-31] MEDS: oxyCONTIN 20mg tab ORAL SCH ×4 (00:02→23:31)
[2019-03-31] MEDS: Zolpidem 5mg tab ORAL PRN ×3 (02:16→23:35)
--- NOTE | 2019-03-31 07:07 | NUR ---
HAND-OFF: Report given to REJI Eason.
[2019-03-31] MEDS: Aspirin Baby 81mg ORAL SCH (08:03)
[2019-03-31 08:08] VITALS: BP 130/73
[2019-03-31] MEDS: Heparin 5000 units/ml inj SUBQ SCH ×2 (08:08→20:04)
[2019-03-31] MEDS: Furosemide 40mg tab ORAL SCH (09:00)
--- NOTE | 2019-03-31 09:34 | NUR ---
NURSE NOTES: PT AXOX4, CALM, RESTING IN BED. PT APPEARS TO BE SLEEPING, ABLE TO BE AROUSED BY VOICE. PT STATES HE DOES NOT WANT TO BE BOTHERED UNLESS IT IS 0800, 1600, AND 0000 HRS. PT STATES V/S ARE FINE. PT WENT BACK TO SLEEP AFTER TAKING SCHEDULED 0900HR MEDS. IN NO APPARENT DISTRESS AT THIS TIME. BED IN LOWEST POSITION WITH BEDSIDE RAILS X2 RAISED. CALL LIGHT WITHIN REACH. WILL CONTINUE TO MONITOR.
--- NOTE | 2019-03-31 11:40 | NUR ---
PT NOTE Attempted to see patient for PT treatment. Patient declining to participate with PT at this time, states he will stay in bed all day today. Patient states that he will participate with PT tomorrow at mutually agreed upon time of 11:30 a.m. Patient was notified that if he is unable to participate with PT tomorrow he will be discharged from PT due to multiple refusals. Jenaro RN notified.
[2019-03-31 12:00] VITALS: BP 115/75
[2019-03-31 16:00] VITALS: BP 110/71
[2019-03-31] MEDS: Miralax 17gm pkt ORAL SCH (16:10)
--- NOTE | 2019-03-31 16:52 | NUR ---
NURSE NOTES: PER VIKASH CORREA, PT IS REFUSING DISCHARGE AND SHE WILL START DISCHARGE APPEAL FOR PT.
--- NOTE | 2019-03-31 18:40 | NUR ---
NURSE NOTES: PT AGREES TO GO TO [facility]. IV ACCESS DISCONTINUED. BELONGINGS REVIEWED WITH PT AT BEDSIDE. PER PT, HE HAS ALL BELONGINGS BUT DOES NOT WANT TO REVIEW DEBIT CARD WITH RN. REPORT GIVEN TO MARIELENA AT [facility] AND [facility] ETA 1945 HRS.
--- NOTE | 2019-03-31 18:41 | Internal Med Progress Note ---
Subjective Date of Service: Mar 31, 2019 Physician Name Jeanmarie Smiley Attending Physician Jorge Benedict MD Current Medications Medications (Trade) Dose Ordered Sig/Kaela Route PRN Reason Start Time Stop Time Status Last Admin Dose Admin Aspirin (ASA) 81 mg DAILY ORAL 03/26/19 09:00 04/24/19 08:59 03/31/19 08:03 Benazepril HCl (Lotensin) 40 mg DAILY ORAL 03/26/19 09:00 04/24/19 08:59 03/27/19 08:10 Carisoprodol (Soma) 350 mg TID@0000,0800,1600 ORAL 03/26/19 00:00 04/25/19 00:00 03/31/19 16:11 Clonazepam (KlonoPIN) 1 mg TID@0000,0800,1600 ORAL 03/26/19 08:00 04/02/19 07:59 03/31/19 16:11 Diphenhydramine HCl (Benadryl) 50 mg Q6H PRN ORAL Itching 03/25/19 17:12 04/24/19 17:11 03/31/19 04:10 Escitalopram Oxalate (Lexapro) 20 mg DAILY ORAL 03/26/19 09:00 04/24/19 08:59 03/30/19 08:23 Furosemide (Lasix) 40 mg DAILY ORAL 03/26/19 09:00 04/24/19 08:59 03/29/19 09:27 Gabapentin (Neurontin) 600 mg TID@0000,0800,1600 ORAL 03/26/19 00:00 04/25/19 00:00 03/31/19 16:11 Heparin Sodium (Porcine) (Heparin 5000 units/ml) 5,000 units Q12HR@0800,2000 SUBQ 03/29/19 20:00 04/28/19 19:59 03/31/19 08:08 Hydrocortisone (Hydrocortisone) 1 applic TID PRN TOPIC Itching 03/30/19 00:30 04/29/19 00:29 Lamotrigine (LaMICtal) 25 mg DAILY ORAL 03/26/19 09:00 04/24/19 08:59 03/30/19 08:23 Nicotine (Nicoderm) 1 patch Q24H TDERMAL 03/27/19 22:00 04/26/19 21:59 03/30/19 21:10 Ondansetron HCl (Zofran) 4 mg Q4H PRN IVP Nausea & Vomiting 03/25/19 19:45 04/23/19 23:44 Oxycodone HCl (OxyCONTIN) 40 mg TID@0000,0800,1600 ORAL 03/26/19 00:00 04/02/19 00:00 03/31/19 16:11 Polyethylene Glycol (Miralax) 17 gm DAILY@1600 ORAL 03/30/19 16:00 04/29/19 15:59 03/31/19 16:10 Tamsulosin HCl (Flomax) 0.4 mg BEDTIME ORAL 03/25/19 21:00 04/24/19 00:00 03/30/19 21:09 Zolpidem Tartrate (Ambien) 5 mg HSPRN PRN ORAL Insomnia 03/26/19 11:45 04/02/19 06:44 03/31/19 03:24 Allergies: Coded Allergies: No Known Allergies (Unverified , 03/24/19) ROS Limited/Unobtainable: No Constitutional: Reports: no symptoms HEENT: Reports: no symptoms Cardiovascular: Reports: no symptoms Respiratory: Reports: no symptoms Gastrointestinal/Abdominal: Reports: no symptoms Genitourinary: Reports: no symptoms Neurologic/Psychiatric: Reports: no symptoms Subjective 63 YO M admitted with generalized weakness and lumbar radiculopathy. Cover for [facility]-DR Benedict Objective Last Vital Signs Date Time Temp Pulse Resp B/P (MAP) Pulse Ox O2 Delivery O2 Flow Rate FiO2 03/31/19 16:00 97.5 68 18 110/71 (84) 95 03/31/19 09:00 Room Air Intake and Output 03/30/19 03/31/19 19:00 07:00 Intake Total 500 ml 500 ml Output Total 430 ml Balance 70 ml 500 ml Intake Oral 500 ml 500 ml Output Urine Total 430 ml # Voids 1 3 # Bowel Movements 1 Objective PHYSICAL EXAMINATION: GENERAL: The patient is well-developed and well-nourished male, in no apparent distress. HEENT: Eyes, pupils equal and responsive to light and accommodation. Extraocular movements are intact. NECK: Supple without lymphadenopathy. CHEST: Lungs are clear to auscultation bilaterally without wheezes or rales. CARDIOVASCULAR: Regular rate. S1, S2 normal without murmurs, rubs, or gallops. ABDOMEN: Soft, nontender, nondistended. Positive bowel sounds. No evidence of hepatosplenomegaly. Currently, no rebound or guarding noted. EXTREMITIES: Negative for clubbing, cyanosis, or edema. RECTAL/GENITAL: Not performed. NEUROLOGIC: Left leg is 3/5 motor strength compared to 5/5 on the right. Deep tendon reflexes are 2+ plantar. Assessment/Plan Assessment/Plan ASSESSMENT: This is a 63-year-old male. 1. Generalized weakness. 2. Chronic low back pain. 3. Left radiculopathy. 4. Lumbar stenosis. 5. Hypertension. 6. Benign prostatic hypertrophy. 7. Anxiety disorder. 8. Obesity. 9. Bipolar depression. 10. S/P lumbar laminectomy; lumbar stenosis TREATMENT: 1. Generalized weakness/low back pain/left radiculopathy/lumbar stenosis. Continue OxyContin as above. A Neurology consultation has been obtained with Dr. Allan Mendes. An MRI of the lumbar spine is pending. 2. Hypertension. Continue benazepril as above. 3. Benign prostatic hypertrophy. Continue tamsulosin as above. 4. Anxiety disorder/bipolar depression. Continue Lamictal and Lexapro as above. 5. Obesity. 6. Physical therapy 7. Discharge planning: unable to return to [facility] Jeanmarie Estevez MD Mar 31, 2019 18:41
--- NOTE | 2019-03-31 19:34 | NUR ---
HAND-OFF: Report given to Katharina GUTIERREZ RN.
[2019-03-31 20:00] VITALS: BP 138/77
[2019-03-31] MEDS: Tamsulosin 0.4mg cap ORAL SCH (20:03)
--- NOTE | 2019-03-31 22:53 | NUR ---
NURSE NOTES: Patient discharged with [facility]. Spoke with Diana at [facility] and they are expecting patient. Discharge packet given to tilt tray driver. Patient hospital bracelet taken off. VSS. Belongings left with patient.
--- NOTE | 2019-03-31 23:41 | NUR ---
NURSE NOTES: Patient returned to floor by ambulance staff. Patient wanted to take his 0000 medications before being transferred. assembly supervisor and charge nurse aware and spoke with patient. Patient agreed to take 0000 medications at 2330. After giving medications, patient insisted on taking his PRN medications as well of ambien and benadryl. assembly supervisor contacted to make sure its ok. Patient agreed to be transported after taking all medications. Addendum: 03/31/19 at 2352 by Socorro Greene RN Patient demanded a second dose of ambsandy, charge nurse explained that we are not allowed to give a 2nd dose at this time in conjunction with all the other medications he had just taken. Transport left the floor with patient at 2351.
--- NOTE | 2019-04-02 07:50 | Discharge Summary ---
Discharge Summary Discharge Summary _ DATE OF ADMISSION: 03/24/2019 DATE OF DISCHARGE: 03/31/2019 DISCHARGED BY: Dr. Benedict REASON FOR ADMISSION: 64 years old male with past medical history of hypertension, anxiety, lumbar disc disease, BPH, obesity, presented from the residential facility for evaluation due to weakness increased weakness on the left side. Upon evaluation vital signs were stable. Chest x-ray revealed no acute cardiopulmonary pathology. Laboratory work-up revealed mild leukocytosis 11.9 , stable hemoglobin and hematocrit. Lactic acid 2.9. Troponin negative. Stable renal parameters . Glucose 110. Magnesium 1.7. Urinalysis revealed no evidence of urinary tract infection. Patient admitted to medical surgical floor for further management. CONSULTANTS: hospitalist Dr. Lay [facility] COURSE: Patient admitted to medical surgical floor. MRI of lumbar spine revealed: Left convex lumbar scoliosis. Multilevel degenerative disease involving the intervertebral discs and facets. L1-2: Normal. L2-3: Narrowing of the right lateral recess and mild right foraminal stenosis. Facet arthropathy. L3-4: Status post laminectomy Moderate degenerative disc disease. Moderate right lateral recess/neural foraminal stenosis. L4-5: Status post laminectomy. Moderate degenerative disc disease. Narrowing of the right lateral recess and moderate bilateral foraminal stenosis slightly worse on the left compared to the right. Facet arthropathy. L5-S1: Facet arthropathy. Pain management was addressed. Blood pressure was managed with current antihypertensive medication regimen. Flomax continued. Psychiatric medication regimen continued. Patient was working with physical therapist . Fall precaution maintained. Unfortunately unable to obtain neurology evaluation during this admission. Bowel regimen instituted. Supportive care provided. DVT prophylaxis provided. Patient was counseled on smoking cessation . Patient started on nicotine patch. Patient clinically stabilized and was ready for discharge back to residential facility . Outpatient follow-up with neurologist will be arranged. FINAL DIAGNOSES: Lumbar stenosis, status post lumbar laminectomy Left radiculopathy Hypertension BPH Anxiety disorder Bipolar depression Obesity DISCHARGE MEDICATIONS: See Medication Reconciliation list. DISCHARGE INSTRUCTIONS: Patient was discharged to the residential facility. Follow up with medical doctor at the facility. I have been assigned to dictate discharge summary for this account. I was not involved in the patient's management. Theresa Hines NP Apr 02, 2019 07:50
== END 2019-03-31 23:50 | DRG 552 ==
LOC: EDBD 16:53 → EMR 17:29 → 2E 17:54 → EDBEDREQ 20:10 → 2E 20:43 → 4E 03-25 17:09
DX: M51.16 Intervertebral disc disorders with radiculopathy, lumbar region (principal); M48.061 Spinal stenosis, lumbar region without neurogenic claudication; N40.0 Benign prostatic hyperplasia without lower urinary tract symptoms; M41.9 Scoliosis, unspecified; R53.1 Weakness; I10 Essential (primary) hypertension; F41.9 Anxiety disorder, unspecified; E66.9 Obesity, unspecified; F31.9 Bipolar disorder, unspecified; F17.200 Nicotine dependence, unspecified, uncomplicated
CPT/HCPCS: 36415; 71045; 72158; 80048; 80053; 81003; 82550; 82553; 83605; 83735; 84100; 84484; 85025; 87040; 87081; 93005; 96360; 99285; A9585